=== PATIENT | male | born 1970 | race Caucasian/White ===

== ENCOUNTER 2017-02-03 12:26 | Emergency (ER) | payer OTHER ==
[~2017-02-03] VITALS: Ht 180.3 cm; Wt 100.0 kg
[2017-02-03 12:27] VITALS: BP 134/78; PULSE 92; RESP 12; TEMP 98.6; O2SAT 99
[2017-02-03] MEDS ORDERED: TRAM50TA PO (14:46)
--- NOTE | 2017-02-03 14:46 | PD ---
HPI Chief Complaint: Injury Time Seen by Provider: 12:50 Travel History International Travel<30 days: No Contact w/Intl Traveler<30days: No Traveled to known affect area: No History of Present Illness HPI The patient was seen and examined in the presence of the nurse. This patient complains of a painful area on his right lower leg. Duration 2 days. Severity is moderate. PFSH Past Medical History Hx Anticoagulant Therapy: No Bipolar Disorder: Yes Anxiety: Yes Depression: Yes Cardiovascular Problems: No High Cholesterol: Yes Chemotherapy: No Cerebrovascular Accident: No Diabetes: No Diminished Hearing: No GERD: Yes Headaches: Yes Psychiatric: Yes (PTSD) Respiratory: No Tetanus Vaccination: Unknown Influenza Vaccination: No Social History Alcohol Use: No (QUIT 9 YEARS AGO) Tobacco Use: Yes (1/2 PPD) Substance Use: No Allergies-Medications (Allergen,Severity, Reaction): Coded Allergies: cephalexin (Verified Allergy, Mild, Hives, 02/03/17) Review of Systems General / Constitutional: No: Fever HENT: No: Headaches Cardiovascular: No: Chest Pain or Discomfort Physical Exam Narrative SKIN: Focused skin assessment reveals no rash or ulcers. Skin is warm and dry. Palpation shows no induration or nodules. GASTROINTESTINAL: Abdomen soft, non-tender, nondistended. Positive bowel sounds. No hepato-splenomegaly, or palpable masses. No guarding. Right leg: Patient has a palpable cord in the medial aspect of the right lower leg which is tender and inflamed Data Data Last Documented VS Vital Signs Date Time Temp Pulse Resp B/P (MAP) Pulse Ox O2 Delivery O2 Flow Rate FiO2 02/03/17 12:55 18 99 Room Air 02/03/17 12:27 98.6 92 134/78 (96) [facility] Medical Decision Making Medical Screen Exam Complete: Yes Emergency Medical Condition: Yes Medical Record Reviewed: Yes Differential Diagnosis Superficial thrombophlebitis, DVT, cellulitis Narrative Course I have reviewed the patient's electronic medical record. Presentation is consistent with a superficial thrombophlebitis. This is not a DVT. Recommending Naprosyn and warm compresses I wrote some tramadol to use as needed for breakthrough pain The patient was advised to follow up with their physician and return if they worsen. Diagnosis Primary Impression: Superficial thrombophlebitis Qualified Codes: I80.01 - Phlebitis and thrombophlebitis of superficial vessels of right lower extremity Additional Instructions: The patient was advised to follow up with their physician and return if they worsen. The patient was warned about potential sedation for the medications they will receive on prescription. Take Naprosyn daily for one week Use warm compresses Med/Other Pt SpecificInfo: Prescription(s) given Disposition: 01 DISCHARGE HOME Condition: Stable James Hua MD Feb 03, 2017 14:46
[2017-02-06] MEDS ORDERED: DULO1CAP3 PO (08:39)
[2017-02-06] MEDS ORDERED: QUET1TAB9 PO ×2 (08:39)
[2017-02-06] MEDS ORDERED: ESZO1TAB2 PO (08:39)
[2017-02-06] MEDS ORDERED: NAPR-855 PO (08:39)
[2017-02-06] MEDS ORDERED: NORT25CA PO (08:39)
[2017-02-06] MEDS ORDERED: OMEP20TA93 PO (08:39)
[2017-02-06] MEDS ORDERED: MONT10TA4 PO (08:39)
[2017-02-06] MEDS ORDERED: ALBU1AER5 INH (08:39)
[2017-02-06] MEDS ORDERED: GABA300C5 PO (08:39)
[2017-02-06] MEDS ORDERED: BUSP10TA PO (08:39)
[2017-02-06] MEDS ORDERED: ASPI-516 CHEW (08:39)
[2017-02-06] MEDS ORDERED: ASMA220A2 INH (08:39)
[2017-02-06] MEDS ORDERED: CETI10 PO (08:39)
[2017-02-06] MEDS ORDERED: ATOR80TA45 PO (08:39)
== END 2017-02-03 16:38 | disposition home or self-care (01) ==
LOC: NEPE 12:26
DX: I80.01 Phlebitis and thrombophlebitis of superficial vessels of right lower extremity (principal); K21.9 Gastro-esophageal reflux disease without esophagitis; Z72.0 Tobacco use
CPT/HCPCS: 99283

== ENCOUNTER 2017-02-11 15:16 | Emergency (ER) | payer OTHER ==
[~2017-02-11] VITALS: Ht 180.3 cm; Wt 100.0 kg
[~2017-02-11 15:16] MED LIST: ALBU1AER5 INH; ASMA220A2 INH; ASPI-516 CHEW; ATOR80TA45 PO; BUSP10TA PO; CETI10 PO; DULO1CAP3 PO; ESZO1TAB2 PO; GABA300C5 PO; MONT10TA4 PO; NAPR-855 PO; NORT25CA PO; OMEP20TA93 PO; QUET1TAB9 PO
[2017-02-11 15:18] VITALS: BP 133/66; PULSE 103; RESP 17; TEMP 98.5; O2SAT 97
--- NOTE | 2017-02-11 15:53 | PD ---
HPI Chief Complaint: Dizziness Time Seen by Provider: 15:41 Travel History International Travel<30 days: No Contact w/Intl Traveler<30days: No Traveled to known affect area: No History of Present Illness HPI 46-year-old male presents emergency Department with complaint of right knee pain , left ankle pain and left foot pain after feeling dizzy and falling today. He says he feels dizzy a lot secondary to his current psychiatric and medical medications. Denies hitting his head or loss of consciousness. Reports chronic neck pain that is unchanged. Reports being ambulatory on the affected extremities. Denies paresthesias, loss of sensation, decreased range of motion , decreased strength to bilateral lower extremities. Reports sudden onset of right-sided chest pain that lasted [address] Said it took his breath away and he had a little bit of shortness of breath. Denies chest pain or shortness breath at this time. Denies heart palpitations, history of NM , family history of NM. Reports tobacco use. Says the chest pain was a 10/10 and it was a cutting and stabbing sensation. Has not taken any medications or tried any treatments to be a his symptoms. Symptoms are moderate in severity. Allergies to Keflex. [facility] History of PTSD with severe depression, chronic headaches, chronic neck pain. Gabapentin, nortriptyline, and aspirin. Has no other medical complaints. No other modifying factors or associated signs and symptoms. PFSH Past Medical History Hx Anticoagulant Therapy: No Bipolar Disorder: Yes Anxiety: Yes Depression: Yes Cardiovascular Problems: No High Cholesterol: Yes Chemotherapy: No Cerebrovascular Accident: No Diabetes: No Diminished Hearing: No GERD: Yes Headaches: Yes Psychiatric: Yes (PTSD) Respiratory: No Tetanus Vaccination: < 5 Years Influenza Vaccination: No Social History Alcohol Use: No (QUIT 9 YEARS AGO) Tobacco Use: Yes (1/2 PPD) Substance Use: No Allergies-Medications (Allergen,Severity, Reaction): Coded Allergies: cephalexin (Verified Allergy, Mild, Hives, 02/06/17) Reported Meds & Prescriptions Reported Meds & Active Scripts Active Reported Montelukast (Montelukast Sodium) 10 Mg Tab 10 Mg PO HS Atorvastatin (Atorvastatin Calcium) 80 Mg Tab 80 Mg PO HS Aspirin 81 Mg Chew 81 Mg CHEW DAILY Buspirone (Buspirone HCl) 10 Mg Tab 20 Mg PO TID Eszopiclone 1 Mg Tab 1 Mg PO HS PRN Naproxen 375 Mg Tab 375 Mg PO BID PRN Nortriptyline (Nortriptyline HCl) 25 Mg Cap 25 Mg PO BID Omeprazole 20 Mg Tab 20 Mg PO DAILY Asmanex 60 Act Twisthaler (Mometasone 60 Act Inh) 220 Mcg/Act Inh 1 Puff INH BID Duloxetine DR (Duloxetine HCl) 60 Mg Capdr 60 Mg PO DAILY Proair Respiclick Inh (Albuterol Sulfate) 90 Mcg/Act Aerp 2 Puff INH Q6H PRN Quetiapine (Quetiapine Fumarate) 200 Mg Tab 600 Mg PO HS Quetiapine (Quetiapine Fumarate) 200 Mg Tab 200 Mg PO AC BREAKFAST Gabapentin 300 Mg Cap 300 Mg PO TID Cetirizine (Cetirizine HCl) 10 Mg Tab 10 Mg PO DAILY Review of Systems Except as stated in HPI: all other systems reviewed are Neg Physical Exam Narrative GENERAL: Well-nourished, well-developed male patient, in no acute distress SKIN: Warm and dry. HEAD: Atraumatic. Normocephalic. EYES: Pupils equal and round. No scleral icterus. No injection or drainage. ENT: Mucosa pink and moist. Airway patent. NECK: Trachea midline. CARDIOVASCULAR: Regular rate and rhythm. No murmur appreciated. RESPIRATORY: No accessory muscle use. Sounds clear and equal bilaterally. No retractions or tachypnea. GASTROINTESTINAL: Abdomen soft, non-tender, nondistended. Bowel sounds active 4 quadrants. Nonrigid. No guarding. MUSCULOSKELETAL: Right knee without edema, erythema, ecchymosis; tenderness on palpation to the lateral aspect; with full range of motion approximately 90; joint stable with negative drawer test. Left ankle and foot with edema; ankle with tenderness on palpation to the lateral and medial malleolar zone; small area of ecchymosis noted to the dorsal aspect of the left foot just below the third, fourth, fifth toe; with tenderness to palpation. Bilateral lower extremities are supple and non-tense a 2+ pedal pulses and sensory intact. No obvious deformities. No clubbing. No cyanosis. No edema. NEUROLOGICAL: Awake and alert. Oriented 3. No obvious cranial nerve deficits. Motor grossly within normal limits. Normal speech. PSYCHIATRIC: Appropriate mood and affect; insight and judgment normal. Data Data Last Documented VS Vital Signs Date Time Temp Pulse Resp B/P (MAP) Pulse Ox O2 Delivery O2 Flow Rate FiO2 02/11/17 18:59 81 15 94 Room Air 02/11/17 18:58 111/64 (80) 02/11/17 15:18 98.5 Orders Orders Electrocardiogram (02/11/17 ) Basic Metabolic Panel (Bmp) (02/11/17 15:53) Complete Blood Count With Diff (02/11/17 15:53) Magnesium (Mg) (02/11/17 15:53) Prothrombin Time / Inr (Pt) (02/11/17 15:53) Act Partial Throm Time (Ptt) (02/11/17 15:53) Troponin I (02/11/17 15:53) Chest, Single Ap (02/11/17 15:53) Ecg Monitoring (02/11/17 15:53) Iv Access Insert/Monitor (02/11/17 15:53) Oximetry (02/11/17 15:53) Oxygen Administration (02/11/17 15:53) Sodium Chloride 0.9% Flush (Ns Flush) (02/11/17 16:00) Knee, Complete (4vws) (02/11/17 15:53) Ankle, Complete (Wap5zib) (02/11/17 15:53) Foot, Complete (Dii5nxg) (02/11/17 15:53) Ketorolac Inj (Toradol Inj) (02/11/17 16:00) Troponin I (02/11/17 19:00) Potassium Chloride (Kcl) (02/11/17 17:45) Splint Or Brace Apply/Monitor (02/11/17 17:31) Labs Laboratory Tests Test 02/11/17 16:00 02/11/17 19:00 White Blood Count 6.1 TH/MM3 Red Blood Count 3.71 MIL/MM3 Hemoglobin 11.2 GM/DL Hematocrit 33.3 % Mean Corpuscular Volume 90.0 FL Mean Corpuscular Hemoglobin 30.1 PG Mean Corpuscular Hemoglobin Concent 33.5 % Red Cell Distribution Width 15.2 % Platelet Count 200 TH/MM3 Mean Platelet Volume 9.9 FL Neutrophils (%) (Auto) 61.5 % Lymphocytes (%) (Auto) 28.7 % Monocytes (%) (Auto) 6.8 % Eosinophils (%) (Auto) 2.5 % Basophils (%) (Auto) 0.5 % Neutrophils # (Auto) 3.8 TH/MM3 Lymphocytes # (Auto) 1.8 TH/MM3 Monocytes # (Auto) 0.4 TH/MM3 Eosinophils # (Auto) 0.2 TH/MM3 Basophils # (Auto) 0.0 TH/MM3 CBC Comment DIFF FINAL Differential Comment Prothrombin Time 11.2 SEC Prothromb Time International Ratio 1.0 RATIO Activated Partial Thromboplast Time 27.4 SEC Blood Urea Nitrogen 9 MG/DL Creatinine 1.03 MG/DL Random Glucose 198 MG/DL Calcium Level 8.1 MG/DL Magnesium Level 2.0 MG/DL Sodium Level 140 MEQ/L Potassium Level 3.2 MEQ/L Chloride Level 109 MEQ/L Carbon Dioxide Level 21.5 MEQ/L Anion Gap 10 MEQ/L Estimat Glomerular Filtration Rate 78 ML/MIN Troponin I LESS THAN 0.02 NG/ML LESS THAN 0.02 NG/ML MDM Medical Decision Making Medical Screen Exam Complete: Yes Emergency Medical Condition: Yes Medical Record Reviewed: Yes Differential Diagnosis Vertigo, electrolyte imbalance, cardiac arrhythmia, NM, ACS, fracture, sprain, fall Narrative Course 46-year-old male with complaint of dizziness, right knee pain, left ankle pain, left foot pain, episode of chest pain after a fall secondary to dizziness today. I discussed patient with Dr. Guerrero, my attending physician, and he agreed with my treatment plan. IV site established. Labs ordered. X-rays ordered. EKG ordered. 1705: Left ankle x-ray, left foot x-ray, right knee x-ray, chest x-ray concludes: Knee X-Ray 02/11/171552 Signed Impressions: Service Date/Time: Saturday, February 11, 2017 16:17 - CONCLUSION: Questionable small joint effusion. No acute osseous abnormality is identified. Tyler Mcneal MD Foot X-Ray 02/11/17 5545 Signed Impressions: Service Date/Time: Saturday, February 11, 2017 16:14 - CONCLUSION: Mild dorsal soft tissue swelling. No fracture is identified. Tyler Mcneal MD Chest X-Ray 02/11/17 7132 Signed Impressions: Service Date/Time: Saturday, February 11, 2017 16:12 - CONCLUSION: No acute cardiopulmonary abnormality is identified. Tyler Mcneal MD Ankle X-Ray 02/11/17 0930 Signed Impressions: Service Date/Time: Saturday, February 11, 2017 16:15 - CONCLUSION: Diffuse subcutaneous edema with an old healed fracture of the distal fibula. No acute fracture is identified. Tyler Mcneal MD CBC unremarkable. Coags unremarkable. Potassium 3.2. Troponin less than 0.02. Magnesium 2.0. Dr. Guerrero recommended a repeat troponin after 3 hours from last troponin. Repeat troponin ordered for 1899 and pending results patient disposition will be determined at that time; if troponin within normal limits patient will be discharged home. 40 MeQ potassium chloride ordered. Juan bandage and ankle stirrup splint ordered for ankle injury. After the patient crutches for support and he says he will use his cane. 194: Repeat troponin less than 0.02. Instructed patient to follow up with orthopedics as needed. Patient has cane for support. Instructed patient to follow up with primary care provider. Patient verbalizes understanding and agreement with treatment plan. Patient is medically cleared and stable for discharge. Discussed reasons to return to the emergency department. Patient agrees with treatment plan. The patients vital signs are stable and the patient is stable for outpatient follow-up and treatment. Patient discharged home, stable and in no acute distress. Diagnosis Primary Impression: Fall Qualified Codes: W19.XXXA - Unspecified fall, initial encounter Additional Impressions: Left ankle injury Qualified Codes: S99.912A - Unspecified injury of left ankle, initial encounter Injury of left foot Qualified Codes: S99.922A - Unspecified injury of left foot, initial encounter Right knee injury Qualified Codes: S89.91XA - Unspecified injury of right lower leg, initial encounter Dizziness Chest pain Qualified Codes: R07.9 - Chest pain, unspecified Referrals: [facility] Primary Care Physician Patient Instructions: Ankle Sprain (ED), Dizziness (ED), Fall Prevention (ED), Foot Sprain (ED), General Instructions, Knee Sprain (ED) Additional Instructions: Tylenol or ibuprofen as directed and as needed for pain and inflammation Rest, ice, compress, and elevate extremity to decrease pain and inflammation Ankle Brace for support Knee brace as needed for support Crutches or cane for support Avoid aggravating activity; increase activity as tolerated Follow-up with primary care provider Return to the emergency department immediately with worsening of symptoms Med/Other Pt SpecificInfo: No Change to Meds, No Meds Exist/No RX given Disposition: 01 DISCHARGE HOME Condition: Stable Corrie Rodriguez Feb 11, 2017 15:53
[2017-02-11] MEDS ORDERED: KETOROLAC TROMETHAMINE 30 MG/ML (IVP) VIAL IV PUSH ONE (16:00)
[2017-02-11] MEDS ORDERED: SODIUM CHLORIDE 0.9% FLUSH 10 ML FLUSH IVF PRN (16:00)
[2017-02-11 16:06] VITALS: O2SAT 99
--- NOTE | 2017-02-11 16:40 | RADRPT ---
EXAM DATE/TIME: 02/11/2017 16:12 [facility] COMPARISON: No previous studies available for comparison. INDICATIONS : Fall, shortness of breath. MEDICAL HISTORY : None. SURGICAL HISTORY : None. ENCOUNTER: Initial ACUITY: 1 day PAIN SCORE: 0/10 LOCATION: Bilateral chest FINDINGS: Portable AP view of the chest demonstrates a normal-sized cardiac silhouette. No effusion, consolidat ion, or pneumothorax is visualized. The bones and soft tissues demonstrate no acute abnormality. Lung s are mildly underinflated. CONCLUSION: No acute cardiopulmonary abnormality is identified. Tyler Mcneal MD on February 11, 2017 at 16:37 Board Certified Radiologist. This report was verified electronically.
--- NOTE | 2017-02-11 16:42 | RADRPT ---
EXAM DATE/TIME: 02/11/2017 16:14 [facility] COMPARISON: No previous studies available for comparison. INDICATIONS : Fall pain in left foot bruising on anterior foot. MEDICAL HISTORY : None. SURGICAL HISTORY : None. ENCOUNTER: Initial ACUITY: 1 day PAIN SCORE: 0/10 LOCATION: Left foot FINDINGS: Three views of the right foot demonstrate no fracture or dislocation. The Lisfranc joint appears inta ct. Mineralization is within normal limits and there is no significant arthropathy. No radiopaque for eign body is identified. There is mild soft tissue swelling on the dorsal aspect of the foot. CONCLUSION: Mild dorsal soft tissue swelling. No fracture is identified. Tyler Mcneal MD on February 11, 2017 at 16:38 Board Certified Radiologist. This report was verified electronically.
--- NOTE | 2017-02-11 16:43 | RADRPT ---
EXAM DATE/TIME: 02/11/2017 16:15 [facility] COMPARISON: No previous studies available for comparison. INDICATIONS : Fall pain in left ankle, bruising in anterior ankle. MEDICAL HISTORY : None. SURGICAL HISTORY : None. ENCOUNTER: Initial ACUITY: 1 day PAIN SCORE: 0/10 LOCATION: Left ankle FINDINGS: 3 views the left ankle demonstrate no fracture or dislocation. Ankle mortise is intact. There is bony callus and change of the distal fibular metaphysis related to an old healed fracture. There is diffu se subcutaneous edema. No radiopaque foreign body is identified. CONCLUSION: Diffuse subcutaneous edema with an old healed fracture of the distal fibula. No acute fracture is joshua ntified. Tyler Mcneal MD on February 11, 2017 at 16:40 Board Certified Radiologist. This report was verified electronically.
[2017-02-11 16:44] LABS: AUTOMATED NEUTROPHIL # 3.8 TH/MM3 (1.8-7.7); BASOPHIL % 0.5 % (0.0-2.0); EOSINOPHIL # 0.2 TH/MM3 (0-0.4); EOSINOPHIL % 2.5 % (0.0-4.0); HEMATOCRIT 33.3 % (39.0-51.0); HEMO FLAGS DIFF FINAL; LYMPH % 28.7 % (9.0-44.0); LYMPHOCYTE # 1.8 TH/MM3 (1.0-4.8); MEAN CORPUSCULAR HEMOGLOBIN 30.1 PG (27.0-34.0); MEAN CORPUSCULAR HGB CONC 33.5 % (32.0-36.0); MONO % 6.8 % (0.0-8.0); NEUT % 61.5 % (16.0-70.0); PLATELET COUNT 200 TH/MM3 (150-450); RED BLOOD COUNT 3.71 MIL/MM3 (4.50-5.90); RED CELL DISTRIBUTION WIDTH 15.2 % (11.6-17.2); WHITE BLOOD COUNT 6.1 TH/MM3 (4.0-11.0)
--- NOTE | 2017-02-11 16:45 | RADRPT ---
EXAM DATE/TIME: 02/11/2017 16:17 [facility] COMPARISON: No previous studies available for comparison. INDICATIONS : Fall, pain in right knee. MEDICAL HISTORY : None. SURGICAL HISTORY : None. ENCOUNTER: Initial ACUITY: 1 day PAIN SCORE: 0/10 LOCATION: Right knee FINDINGS: Four views of the right knee demonstrate no fracture or dislocation. Possible small joint effusion. T here is no significant arthropathy and mineralization is within normal limits. No soft tissue abnorma lity or radiopaque foreign body is identified. CONCLUSION: Questionable small joint effusion. No acute osseous abnormality is identified. Tyler Mcneal MD on February 11, 2017 at 16:42 Board Certified Radiologist. This report was verified electronically.
[2017-02-11 16:49] LABS: APTT (PATIENT) 27.4 SEC (24.3-30.1); PROTHROMBIN TIME - PATIENT 11.2 SEC (9.8-11.6)
[2017-02-11 16:54] LABS: ANION GAP 10 MEQ/L (5-15); BICARBONATE 21.5 MEQ/L (21.0-32.0); BLOOD UREA NITROGEN 9 MG/DL (7-18); CHLORIDE 109 MEQ/L (98-107); GLOMERULAR FILTRATION RATE 78 ML/MIN (>89); POTASSIUM 3.2 MEQ/L (3.5-5.1); SODIUM (NA) 140 MEQ/L (136-145)
[2017-02-11] MEDS ORDERED: POTASSIUM CHLORIDE 20 MEQ CONTROLLED RELEASE TAB PO ONE (17:45)
[2017-02-11 18:58] VITALS: BP 111/64; PULSE 76; RESP 15; O2SAT 94
--- NOTE | 2017-02-12 19:08 | EKG ---
Date Performed: 02/11/2017 Time Performed: 15:41:36 PTAGE: 46 years EKG: Sinus rhythm NONSPECIFIC T-WAVE ABNORMALITY BORDERLINE ECG NO PREVIOUS TRACING DOCTOR: Chasidy Archibald Interpretating Date/Time 02/12/2017 19:06:15
== END 2017-02-11 21:16 | disposition home or self-care (01) ==
LOC: NEPC 15:16
DX: S99.912A Unspecified injury of left ankle, initial encounter (principal); S99.922A Unspecified injury of left foot, initial encounter; S89.91XA Unspecified injury of right lower leg, initial encounter; R42 Dizziness and giddiness; R07.9 Chest pain, unspecified; R94.31 Abnormal electrocardiogram [ECG] [EKG]; R06.02 Shortness of breath; Z72.0 Tobacco use
CPT/HCPCS: 71010; 73564; 73610; 73630; 80048; 83735; 84484; 85025; 85610; 85730; 93005; 96372; 99285; J1885; L1906

== ENCOUNTER 2017-05-05 11:03 | Emergency (ER) | payer OTHER ==
[2017-05-05 11:06] VITALS: BP 133/77; PULSE 97; RESP 18; TEMP 98.2; O2SAT 97
--- NOTE | 2017-05-05 11:16 | PD ---
HPI Chief Complaint: Injury Time Seen by Provider: 11:09 Travel History International Travel<30 days: No Contact w/Intl Traveler<30days: No Traveled to known affect area: No History of Present Illness HPI 46-year-old male presents to emergency department for evaluation of a tingling in his left hand from his wrist to his first second and third digits. He woke up with his hands like this. He denies any injury. He is uncertain of how he slept on it. Denies any other numbness or tingling. Denies any weakness. Denies any other symptoms at this time. PFSH Past Medical History Hx Anticoagulant Therapy: No Bipolar Disorder: Yes Anxiety: Yes Depression: Yes Cardiovascular Problems: No High Cholesterol: Yes Chemotherapy: No Cerebrovascular Accident: No Diabetes: No Diminished Hearing: No GERD: Yes Headaches: Yes Psychiatric: Yes (PTSD) Respiratory: No Social History Alcohol Use: No (QUIT 9 YEARS AGO) Tobacco Use: Yes (1/2 PPD) Substance Use: No Allergies-Medications (Allergen,Severity, Reaction): Coded Allergies: cephalexin (Verified Allergy, Mild, Hives, 05/05/17) Reported Meds & Prescriptions Reported Meds & Active Scripts Active Reported Tizanidine (Tizanidine HCl) 2 Mg Cap 1 Mg PO HS Montelukast (Montelukast Sodium) 10 Mg Tab 10 Mg PO HS Atorvastatin (Atorvastatin Calcium) 80 Mg Tab 80 Mg PO HS Aspirin 81 Mg Chew 81 Mg CHEW DAILY Buspirone (Buspirone HCl) 10 Mg Tab 20 Mg PO TID Eszopiclone 1 Mg Tab 1 Mg PO HS PRN Naproxen 375 Mg Tab 375 Mg PO BID PRN Nortriptyline (Nortriptyline HCl) 25 Mg Cap 25 Mg PO BID Omeprazole 20 Mg Tab 20 Mg PO DAILY Asmanex 60 Act Twisthaler (Mometasone 60 Act Inh) 220 Mcg/Act Inh 1 Puff INH BID Duloxetine DR (Duloxetine HCl) 60 Mg Capdr 60 Mg PO DAILY Proair Respiclick Inh (Albuterol Sulfate) 90 Mcg/Act Aerp 2 Puff INH Q6H PRN Quetiapine (Quetiapine Fumarate) 200 Mg Tab 600 Mg PO HS Quetiapine (Quetiapine Fumarate) 200 Mg Tab 200 Mg PO AC BREAKFAST Gabapentin 300 Mg Cap 300 Mg PO TID Cetirizine (Cetirizine HCl) 10 Mg Tab 10 Mg PO DAILY Review of Systems Except as stated in HPI: all other systems reviewed are Neg Physical Exam Narrative GENERAL: Well-nourished, well-developed male patient, ambulatory with cane assistance, in no acute distress. SKIN: Focused skin assessment warm/dry. HEAD: Normocephalic. EYES: No scleral icterus. No injection or drainage. NECK: Supple, trachea midline. No JVD or lymphadenopathy. CARDIOVASCULAR: Regular rate and rhythm without murmurs, gallops, or rubs. RESPIRATORY: Breath sounds equal bilaterally. No accessory muscle use. MUSCULOSKELETAL: No cyanosis, or edema. 5+ bilateral upper extremities. Patient reports altered sensation on the dorsal lateral left hand from the wrist extending to the first second and third digits. He does report that he can feel me touching but the area feels "asleep." Distal pulses are palpable. Cap refill is within normal limits. BACK: Nontender without obvious deformity. No CVA tenderness. Data Data Last Documented VS Vital Signs Date Time Temp Pulse Resp B/P (MAP) Pulse Ox O2 Delivery O2 Flow Rate FiO2 05/05/17 11:35 05/05/17 11:06 98.2 97 18 97 Orders Orders Ed Discharge Order (05/05/17 11:14) Splint Or Brace Apply/Monitor (05/05/17 11:16) MDM Medical Decision Making Medical Screen Exam Complete: Yes Emergency Medical Condition: Yes Medical Record Reviewed: Yes Differential Diagnosis Nerve palsy versus nerve injury versus carpal tunnel Narrative Course 46-year-old male presents emergency department for evaluation patient appears without distress. He has no other focal deficits or weakness just a subjective report of altered sensation to touch on the dorsal left hand extending from the wrist to the first, second, and third digits. I discussed the patient might any position. Patient is placed in a cock-up splint. He is encouraged to follow-up with a hand specialist and neurologist. He agrees to return immediately with any acute worsening symptoms. Diagnosis Primary Impression: Left radial sensory nerve injury Qualified Codes: S44.22XA - Injury of radial nerve at upper arm level, left arm, initial encounter Referrals: Hand Surgeon Patient Instructions: General Instructions, Radial Nerve Palsy (ED) Additional Instructions: Follow up with a hand specialist Seek neurology evaluation if symptoms persist Cock up wrist splint may help to improve symptoms Return to ED with acute worsening of symptoms Med/Other Pt SpecificInfo: No Change to Meds Disposition: 01 DISCHARGE HOME Condition: Stable Vera Cohen May 05, 2017 11:16
[2017-05-05] MEDS ORDERED: TIZA2CAP3 PO (11:17)
== END 2017-05-05 11:40 | disposition home or self-care (01) ==
LOC: NEPD 11:03
DX: S44.22XA Injury of radial nerve at upper arm level, left arm, initial encounter (principal); Z72.0 Tobacco use; X58.XXXA Exposure to other specified factors, initial encounter
CPT/HCPCS: 99282; L3908

== ENCOUNTER 2017-06-05 15:26 | Inpatient (IN) | payer OTHER ==
[~2017-06-05 15:26] MED LIST changes: +TIZA2CAP3 PO
[2017-06-05 15:59] VITALS: BP 129/74; PULSE 96; RESP 15; TEMP 98.2; O2SAT 97
--- NOTE | 2017-06-05 17:37 | PD ---
HPI Chief Complaint: Psychiatric Symptoms Time Seen by Provider: 17:34 Travel History International Travel<30 days: No Contact w/Intl Traveler<30days: No Traveled to known affect area: No History of Present Illness HPI 47-year-old male presents to the emergency department voluntarily for having thoughts of suicide and homicide with worsening over the past 2 days. He says his also been on and off for a while but were exacerbated about a week ago after his dog got loose and attacked another dog, almost killing it, and he had to sign his dog over. Has history of PTSD. Doesn't have a current plan of suicide. Denies suicidal attempts. Says he has thoughts of wanting to hurt anybody and everybody. He says he looks at people and thinks of any way that he can try to kill them. Reports auditory hallucinations and hears voices telling him to do bad things. Denies visual hallucinations. Denies illicit drug use. Denies alcohol use. Reports tobacco use. Symptoms aggravated her having to sign his dog over. Unknown duration. Onset unknown. Symptoms are moderate to severe in severity. [facility]. Allergies to Keflex. He is also complaining of right eye pain. On the same day he had a sinus dog over he had a trip and fall and landed on his face. He denies loss of consciousness. Reports eye pain is 10/10. Denies change in vision. Denies vomiting. Reports headache. Has history of migraine headaches and takes gabapentin and another medication of unknown name. Denies change in mentation, slurred speech, confusion, disorientation, focal deficits or weakness. Denies anticoagulant therapy. Has no other medical complaints. No other modifying factors or associated signs and symptoms. PFSH Past Medical History Hx Anticoagulant Therapy: No Bipolar Disorder: Yes Anxiety: Yes Depression: Yes Cardiovascular Problems: No High Cholesterol: Yes Chemotherapy: No Cerebrovascular Accident: No Diabetes: No Diminished Hearing: No GERD: Yes Headaches: Yes Psychiatric: Yes (PTSD) Respiratory: No Immunizations Current: Yes Migraines: Yes Schizophrenia: Yes Seizures: Yes Social History Alcohol Use: No (HX ETOH QUIT 2006) Tobacco Use: Yes (1 PPD) Substance Use: Yes ($200/NIGHT) Allergies-Medications (Allergen,Severity, Reaction): Coded Allergies: cephalexin (Verified Allergy, Mild, Hives, 06/05/17) Reported Meds & Prescriptions Reported Meds & Active Scripts Active Reported Montelukast (Montelukast Sodium) 10 Mg Tab 10 Mg PO HS Atorvastatin (Atorvastatin Calcium) 80 Mg Tab 80 Mg PO HS Aspirin 81 Mg Chew 81 Mg CHEW DAILY Buspirone (Buspirone HCl) 10 Mg Tab 20 Mg PO TID Eszopiclone 1 Mg Tab 1 Mg PO HS PRN Naproxen 375 Mg Tab 375 Mg PO BID PRN Nortriptyline (Nortriptyline HCl) 25 Mg Cap 25 Mg PO BID Omeprazole 20 Mg Tab 20 Mg PO DAILY Asmanex 60 Act Twisthaler (Mometasone 60 Act Inh) 220 Mcg/Act Inh 1 Puff INH BID Duloxetine DR (Duloxetine HCl) 60 Mg Capdr 60 Mg PO DAILY Proair Respiclick Inh (Albuterol Sulfate) 90 Mcg/Act Aerp 2 Puff INH Q6H PRN Quetiapine (Quetiapine Fumarate) 200 Mg Tab 600 Mg PO HS Quetiapine (Quetiapine Fumarate) 200 Mg Tab 200 Mg PO AC BREAKFAST Gabapentin 300 Mg Cap 300 Mg PO TID Cetirizine (Cetirizine HCl) 10 Mg Tab 10 Mg PO DAILY Review of Systems Except as stated in HPI: all other systems reviewed are Neg Physical Exam Narrative GENERAL: Well-nourished, well-developed male patient, in no acute distress SKIN: Warm and dry. HEAD: Atraumatic. Normocephalic. EYES: Pupils equal and round. Right eye with ecchymosis and orbital tenderness on palpation. ENT: Mucosa pink and moist. NECK: Supple. Trachea midline. CARDIOVASCULAR: Regular rate and rhythm. No murmur appreciated. RESPIRATORY: No accessory muscle use. Clear to auscultation. Breath sounds equal bilaterally. GASTROINTESTINAL: Abdomen soft, non-tender, nondistended. Hepatic and splenic margins not palpable. Bowel sounds are active 4 quadrants. MUSCULOSKELETAL: No obvious deformities. No clubbing. No cyanosis. No edema. NEUROLOGICAL: Awake and alert. Oriented 3. No obvious cranial nerve deficits. Motor grossly within normal limits. Normal speech. Moves all extremities. 5/5 strength to all extremities. PSYCHIATRIC: No delusional thought processes. No hallucinations. Data Data Last Documented VS Vital Signs Date Time Temp Pulse Resp B/P (MAP) Pulse Ox O2 Delivery O2 Flow Rate FiO2 06/05/17 20:30 98.0 75 18 141/87 (105) 98 Orders Orders Complete Blood Count With Diff (06/05/17 16:02) Thyroid Stimulating Hormone (06/05/17 16:02) Basic Metabolic Panel (Bmp) (06/05/17 16:02) Psych Screen (06/05/17 16:02) Drug Screen, Random Urine (06/05/17 16:02) Alcohol (Ethanol) (06/05/17 16:02) Ct Brain W/O Iv Contrast(Rout) (06/05/17 ) Ct Facial Bones W/O Iv Cont (06/05/17 ) Acetaminophen (Tylenol) (06/05/17 18:00) Diet Regular Basic (06/05/17 Dinner) Gabapentin (Neurontin) (06/06/17 09:00) Nortriptyline (Pamelor) (06/05/17 21:00) Quetiapine (Seroquel) (06/05/17 21:00) Admit Order (Ed Use Only) (06/05/17 21:54) Labs Laboratory Tests Test 06/05/17 18:30 06/05/17 19:50 White Blood Count 6.7 TH/MM3 Red Blood Count 4.21 MIL/MM3 Hemoglobin 13.3 GM/DL Hematocrit 39.0 % Mean Corpuscular Volume 92.8 FL Mean Corpuscular Hemoglobin 31.5 PG Mean Corpuscular Hemoglobin Concent 34.0 % Red Cell Distribution Width 14.8 % Platelet Count 216 TH/MM3 Mean Platelet Volume 9.2 FL Neutrophils (%) (Auto) 45.3 % Lymphocytes (%) (Auto) 44.0 % Monocytes (%) (Auto) 7.0 % Eosinophils (%) (Auto) 3.1 % Basophils (%) (Auto) 0.6 % Neutrophils # (Auto) 3.0 TH/MM3 Lymphocytes # (Auto) 2.9 TH/MM3 Monocytes # (Auto) 0.5 TH/MM3 Eosinophils # (Auto) 0.2 TH/MM3 Basophils # (Auto) 0.0 TH/MM3 CBC Comment DIFF FINAL Differential Comment Blood Urea Nitrogen 8 MG/DL Creatinine 1.17 MG/DL Random Glucose 100 MG/DL Calcium Level 8.3 MG/DL Sodium Level 142 MEQ/L Potassium Level 4.2 MEQ/L Chloride Level 105 MEQ/L Carbon Dioxide Level 30.2 MEQ/L Anion Gap 7 MEQ/L Estimat Glomerular Filtration Rate 67 ML/MIN Thyroid Stimulating Hormone 3rd Gen 1.250 uIU/ML Ethyl Alcohol Level LESS THAN 3 MG/DL Urine Opiates Screen NEG Urine Barbiturates Screen NEG Urine Amphetamines Screen NEG Urine Benzodiazepines Screen NEG Urine Cocaine Screen NEG Urine Cannabinoids Screen NEG MDM Medical Decision Making Medical Screen Exam Complete: Yes Emergency Medical Condition: Yes Medical Record Reviewed: Yes Differential Diagnosis Bipolar disorder, hallucinations, suicidal thoughts, suicidal threat, encounter for psychological evaluation, medical clearance for psychological evaluation Narrative Course Patient presents voluntarily. Physical examination and vital signs are essentially unremarkable. Patient has no medical complaints to report. Psych screen has been ordered. If the laboratory results are unremarkable, the patient will be medically cleared for psychiatric evaluation and disposition. CT head and CT facial bones ordered. Tylenol ordered. Last [address] 06/05/17 0000 Signed Impressions: Service Date/Time: Monday, June 05, 2017 18:39 - CONCLUSION: 1. Probable nondisplaced fractures of bilateral nasal bone base. 2. Prior sinonasal surgery with persistent opacification within the right maxillary sinus. The Selwyn Rivero MD Head CT 06/05/17 0000 Signed Impressions: Service Date/Time: Monday, June 05, 2017 18:39 - CONCLUSION: No acute findings in the brain. Selwyn Rivero MD Diagnosis Primary Impression: Encounter for psychological evaluation Additional Impression: Nasal bone fractures Qualified Codes: S02.2XXA - Fracture of nasal bones, initial encounter for closed fracture Condition: Stable Corrie Rodriguez [employer] Jun 05, 2017 17:37
[2017-06-05] MEDS ORDERED: ACETAMINOPHEN 325 MG TAB PO ONE (18:00)
--- NOTE | 2017-06-05 19:29 | RADRPT ---
EXAM DATE/TIME: 06/05/2017 18:39 [facility] COMPARISON: No previous studies available for comparison. INDICATIONS : Trauma; fall RADIATION DOSE: 36.32 CTDIvol (mGy) MEDICAL HISTORY : Seizures. SURGICAL HISTORY : None. ENCOUNTER: Initial ACUITY: 1 day PAIN SCALE: 5/10 LOCATION: cranial TECHNIQUE: Multiple contiguous axial images were obtained of the head. Using automated exposure control and adj ustment of the mA and/or kV according to patient size, radiation dose was kept as low as reasonably a chievable to obtain optimal diagnostic quality images. DICOM format image data is available electro nically for review and comparison. FINDINGS: CEREBRUM: The ventricles are normal for age. No evidence of midline shift, mass lesion, hemorrhage or acute in farction. No extra-axial fluid collections are seen. POSTERIOR FOSSA: The cerebellum and brainstem are intact. The 4th ventricle is midline. The cerebellopontine angle i s unremarkable. SKULL: The calvaria is intact. No evidence of skull fracture. CONCLUSION: No acute findings in the brain. Selwyn Rivero MD on June 05, 2017 at 19:27 Board Certified Radiologist. This report was verified electronically.
[2017-06-05 19:30] LABS: BASOPHIL % 0.6 % (0.0-2.0); EOSINOPHIL # 0.2 TH/MM3 (0-0.4); EOSINOPHIL % 3.1 % (0.0-4.0); HEMOGLOBIN 13.3 GM/DL (13.0-17.0); LYMPHOCYTE # 2.9 TH/MM3 (1.0-4.8); MEAN CELL VOLUME 92.8 FL (80.0-100.0); MEAN CORPUSCULAR HEMOGLOBIN 31.5 PG (27.0-34.0); MEAN PLATELET VOLUME 9.2 FL (7.0-11.0); MONOCYTE # 0.5 TH/MM3 (0-0.9); NEUT % 45.3 % (16.0-70.0); PLATELET COUNT 216 TH/MM3 (150-450); RED BLOOD COUNT 4.21 MIL/MM3 (4.50-5.90); RED CELL DISTRIBUTION WIDTH 14.8 % (11.6-17.2); WHITE BLOOD COUNT 6.7 TH/MM3 (4.0-11.0)
--- NOTE | 2017-06-05 19:32 | RADRPT ---
EXAM DATE/TIME: 06/05/2017 18:39 [facility] COMPARISON: No previous studies available for comparison. INDICATIONS : Trauma; fall RADIATION DOSE: 53.9 CTDIvol (mGy) MEDICAL HISTORY : Seizures. SURGICAL HISTORY : None. ENCOUNTER: Initial ACUITY: 1 day PAIN SCORE: 0/10 LOCATION: facial TECHNIQUE: Volumetric scanning of the facial bones was performed. Using automated exposure control and adjustme nt of the mA and/or kV according to patient size, radiation dose was kept as low as reasonably achiev able to obtain optimal diagnostic quality images. DICOM format image data is available electronicall y for review and comparison. FINDINGS: Linear discontinuity is at the base of the left and right nasal bone suggest possible fracture. Ther e is no adjacent soft tissue swelling. The zygomatic arch, lateral and inferior orbital presley, ptery goid plates, and mandible are intact. There is evidence of prior sinonasal surgery with infundibulectomy and ethmoid resection. There is m ucosal thickening occupying most of the right maxillary sinus and inferior nasal cavity. CONCLUSION: 1. Probable nondisplaced fractures of bilateral nasal bone base. 2. Prior sinonasal surgery with persistent opacification within the right maxillary sinus. The Selwyn Rivero MD on June 05, 2017 at 19:28 Board Certified Radiologist. This report was verified electronically.
--- NOTE | 2017-06-05 19:45 | PD ---
Physical Exam Date Seen by Provider: Jun 05, 2017 Time Seen by Provider: 19:43 Data Data Last Documented VS Vital Signs Date Time Temp Pulse Resp B/P (MAP) Pulse Ox O2 Delivery O2 Flow Rate FiO2 06/05/17 15:59 98.2 96 15 129/74 (92) 97 Orders Orders Complete Blood Count With Diff (06/05/17 16:02) Thyroid Stimulating Hormone (06/05/17 16:02) Basic Metabolic Panel (Bmp) (06/05/17 16:02) Psych Screen (06/05/17 16:02) Drug Screen, Random Urine (06/05/17 16:02) Alcohol (Ethanol) (06/05/17 16:02) Ct Brain W/O Iv Contrast(Rout) (06/05/17 ) Ct Facial Bones W/O Iv Cont (06/05/17 ) Acetaminophen (Tylenol) (06/05/17 18:00) Diet Regular Basic (06/05/17 Dinner) Gabapentin (Neurontin) (06/06/17 09:00) Nortriptyline (Pamelor) (06/05/17 21:00) Quetiapine (Seroquel) (06/05/17 21:00) Labs Laboratory Tests Test 06/05/17 18:30 06/05/17 19:50 White Blood Count 6.7 TH/MM3 Red Blood Count 4.21 MIL/MM3 Hemoglobin 13.3 GM/DL Hematocrit 39.0 % Mean Corpuscular Volume 92.8 FL Mean Corpuscular Hemoglobin 31.5 PG Mean Corpuscular Hemoglobin Concent 34.0 % Red Cell Distribution Width 14.8 % Platelet Count 216 TH/MM3 Mean Platelet Volume 9.2 FL Neutrophils (%) (Auto) 45.3 % Lymphocytes (%) (Auto) 44.0 % Monocytes (%) (Auto) 7.0 % Eosinophils (%) (Auto) 3.1 % Basophils (%) (Auto) 0.6 % Neutrophils # (Auto) 3.0 TH/MM3 Lymphocytes # (Auto) 2.9 TH/MM3 Monocytes # (Auto) 0.5 TH/MM3 Eosinophils # (Auto) 0.2 TH/MM3 Basophils # (Auto) 0.0 TH/MM3 CBC Comment DIFF FINAL Differential Comment Blood Urea Nitrogen 8 MG/DL Creatinine 1.17 MG/DL Random Glucose 100 MG/DL Calcium Level 8.3 MG/DL Sodium Level 142 MEQ/L Potassium Level 4.2 MEQ/L Chloride Level 105 MEQ/L Carbon Dioxide Level 30.2 MEQ/L Anion Gap 7 MEQ/L Estimat Glomerular Filtration Rate 67 ML/MIN Thyroid Stimulating Hormone 3rd Gen 1.250 uIU/ML Ethyl Alcohol Level LESS THAN 3 MG/DL Urine Opiates Screen NEG Urine Barbiturates Screen NEG Urine Amphetamines Screen NEG Urine Benzodiazepines Screen NEG Urine Cocaine Screen NEG Urine Cannabinoids Screen NEG [facility] Medical Record Reviewed: Yes Supervised Visit with JT: No Interpretation(s) Laboratory Tests Test 06/05/17 18:30 06/05/17 19:50 White Blood Count 6.7 TH/MM3 Red Blood Count 4.21 MIL/MM3 Hemoglobin 13.3 GM/DL Hematocrit 39.0 % Mean Corpuscular Volume 92.8 FL Mean Corpuscular Hemoglobin 31.5 PG Mean Corpuscular Hemoglobin Concent 34.0 % Red Cell Distribution Width 14.8 % Platelet Count 216 TH/MM3 Mean Platelet Volume 9.2 FL Neutrophils (%) (Auto) 45.3 % Lymphocytes (%) (Auto) 44.0 % Monocytes (%) (Auto) 7.0 % Eosinophils (%) (Auto) 3.1 % Basophils (%) (Auto) 0.6 % Neutrophils # (Auto) 3.0 TH/MM3 Lymphocytes # (Auto) 2.9 TH/MM3 Monocytes # (Auto) 0.5 TH/MM3 Eosinophils # (Auto) 0.2 TH/MM3 Basophils # (Auto) 0.0 TH/MM3 CBC Comment DIFF FINAL Differential Comment Blood Urea Nitrogen 8 MG/DL Creatinine 1.17 MG/DL Random Glucose 100 MG/DL Calcium Level 8.3 MG/DL Sodium Level 142 MEQ/L Potassium Level 4.2 MEQ/L Chloride Level 105 MEQ/L Carbon Dioxide Level 30.2 MEQ/L Anion Gap 7 MEQ/L Estimat Glomerular Filtration Rate 67 ML/MIN Thyroid Stimulating Hormone 3rd Gen 1.250 uIU/ML Ethyl Alcohol Level LESS THAN 3 MG/DL Urine Opiates Screen NEG Urine Barbiturates Screen NEG Urine Amphetamines Screen NEG Urine Benzodiazepines Screen NEG Urine Cocaine Screen NEG Urine Cannabinoids Screen NEG Last [address] 06/05/17 0000 Signed Impressions: Service Date/Time: Monday, June 05, 2017 18:39 - CONCLUSION: 1. Probable nondisplaced fractures of bilateral nasal bone base. 2. Prior sinonasal surgery with persistent opacification within the right maxillary sinus. The Selwyn Rivero MD Head CT 06/05/17 0000 Signed Impressions: Service Date/Time: Monday, June 05, 2017 18:39 - CONCLUSION: No acute findings in the brain. Selwyn Rivero MD Differential Diagnosis MDM: High Differential diagnoses: Schizophrenia, schizoaffective disorder, bipolar, anxiety, depression, adjustment reaction, mood disorder NOS, ODD, depressive disorder NOS, dementia, dementia with agitation, psychosis NOS, substance induced mood disorder, DMDD, Asperger syndrome, infection,electrolyte abnormality, malingering, facial fractures. Narrative Course Mental health screening discussed with the patient. Psychiatric screen ordered. The patient's CAT scan reveals chronic sinus disease and prior sinus surgeries along with an acute nasal fracture. CBC is unremarkable. Chemistries are still pending. Psych has requested that I medically clear the patient so the nurse practitioner can admit the patient. I feel that this is acceptable and they may follow the chemistry. This is medical clearance for psychiatric admission, nasal l fracture Diagnosis Primary Impression: Encounter for psychological evaluation Additional Impression: Nasal fracture Condition: Stable John Flowers Jun 05, 2017 19:45
[2017-06-05 19:47] LABS: BICARBONATE 30.2 MEQ/L (21.0-32.0); BLOOD UREA NITROGEN 8 MG/DL (7-18); CALCIUM 8.3 MG/DL (8.5-10.1); CREATININE 1.17 MG/DL (0.60-1.30); GLOMERULAR FILTRATION RATE 67 ML/MIN (>89); GLUCOSE,RANDOM 100 MG/DL (74-106)
[2017-06-05 20:07] LABS: CHLORIDE 105 MEQ/L (98-107); SODIUM (NA) 142 MEQ/L (136-145)
[2017-06-05 20:30] VITALS: BP 141/87; PULSE 75; RESP 18; TEMP 98; O2SAT 98
[2017-06-05] MEDS ORDERED: QUEtiapine FUMARATE 200 MG TAB PO SCH (21:00)
[2017-06-05] MEDS: NORTRIPTYLINE HCL 25 MG CAP PO SCH (21:00)
[2017-06-05] MEDS ORDERED: MAGNESIUM HYDROXIDE SUSP 30 ML CUP PO PRN (23:00)
[2017-06-05] MEDS: ATORVASTATIN 80 MG TAB PO SCH (23:00)
[2017-06-05] MEDS ORDERED: hydrOXYzine HCL 50 MG TAB PO PRN (23:00)
[2017-06-05] MEDS ORDERED: ALUMINUM/MAGNESIUM/SIMETH 30 ML CUP PO PRN (23:00)
[2017-06-05] MEDS ORDERED: diphenhydrAMINE HCL 50 MG CAP - HS PRN PO (23:00)
[2017-06-05] MEDS ORDERED: ACETAMINOPHEN 325 MG TAB PO PRN (23:00)
[2017-06-05] MEDS ORDERED: ALBUTEROL SULFATE 90 MCG/ACT HFA 8 GM INHALER INH PRN (23:00)
[2017-06-05] MEDS ORDERED: diphenhydrAMINE HCL 50 MG/ML VIAL - HS PRN IM (23:00)
[2017-06-05] MEDS: NAPROXEN 375 MG TAB PO PRN (23:44)
[2017-06-06 06:54] LABS: BICARBONATE 27.4 MEQ/L (21.0-32.0); BLOOD UREA NITROGEN 10 MG/DL (7-18); CALCIUM 8.6 MG/DL (8.5-10.1); CHLORIDE 105 MEQ/L (98-107); CREATININE 1.06 MG/DL (0.60-1.30); GLOMERULAR FILTRATION RATE 76 ML/MIN (>89); GLUCOSE,RANDOM 109 MG/DL (74-106); SODIUM (NA) 141 MEQ/L (136-145)
[2017-06-06 06:56] LABS: CHOLESTEROL 184 MG/DL (120-200); TRIGLYCERIDES 141 MG/DL (42-150)
[2017-06-06 06:59] LABS: CHOLESTEROL/ HDL RATIO 4.67 RATIO; HDL CHOLESTEROL 39.4 MG/DL (40.0-60.0); LDL CHOLESTEROL 116 MG/DL (0-99)
[2017-06-06] MEDS: QUEtiapine FUMARATE 200 MG TAB PO SCH ×2 (08:00→20:53)
[2017-06-06] MEDS: NORTRIPTYLINE HCL 25 MG CAP PO SCH ×2 (09:00→20:52)
[2017-06-06] MEDS ORDERED: PANTOPRAZOLE SOD 20 MG DELAYED RELEASE TAB PO SCH (09:00)
[2017-06-06] MEDS: ASMANEX 220 MCG INH SCH ×2 (09:00→20:51)
[2017-06-06] MEDS ORDERED: NICOTINE 21 MG/24 HR PATCH T-DERMAL SCH (09:00)
[2017-06-06] MEDS: CETIRIZINE HCL 10 MG TAB PO SCH (09:00)
[2017-06-06] MEDS: DULoxetine HCl DR 60 MG CAP PO SCH (09:00)
[2017-06-06] MEDS ORDERED: GABAPENTIN 300 MG CAP PO SCH (09:00)
[2017-06-06] MEDS ORDERED: ASPIRIN 81 MG CHEW TAB PO SCH (09:00)
[2017-06-06] MEDS: busPIRone HCL 10 MG TAB PO SCH ×3 (09:00→18:00)
--- NOTE | 2017-06-06 09:14 | PD.TTN ---
Patient Problems 1. Discharge planning 2. Medication compliance 3. Knowledge deficit 4. Lack of coping skills Progress Toward Goals Provider Present: Dr. Tawana Juarez Provider Input: 06/06/17 - Dr. Juarez reported that this is a new patient who arrived on a voluntary basis reproting depression with suicidal and homicidal ideations. Patient is hearing voices to kill himself and others. He resides with his daughter and they will be moving soon. Psychiatric Counselors Present: ABBY Bueno Psych Therapist Input: 06/06/17 - Counselor will visit patient today to complete biopsychosocial assessment. Group Spec/RT/OT/BARAJAS Present: JENN Barney Group Spec/RT/OT/BARAJAS Input: 06/06/17 - New patient. No groups yet. Discharge Plan 06/06/17 - [facility] Documentation Scribe: ABBY Bueno Date Resolved: Jun 06, 2017 Anny Encinas Jun 06, 2017 09:13
--- NOTE | 2017-06-06 10:22 | HHI.HP ---
Provisional Diagnosis Admission Date Jun 05, 2017 at 21:57 [place] I. 1. Adjustment disorder with other symptoms 2. History of depression and PTSD [place] II. Deferred Certification of Person's Competence To Provide Express and Informed Consent I have personally examined Taiwo Subramanian , a person being served at [facility] on, Jun 06, 2017 10:22. Express and informed consent means consent voluntarily given in writing, by a competent person, after sufficient explanation and disclosure of the subject matter involved to enable the person to make a knowing and willful decision without any element of force, fraud, deceit, duress, or other form of constraint or coercion. This person is 18 years of age or older, is not now known to be incompetent to consent to treatment with a guardian advocate, and does not have a health care surrogate or proxy currently making medical treatment decisions. I have found this person to be one of the following: [x] Competent to provide express and informed consent, as defined above, for voluntary admission to this facility and is competent to provide express and informed consent for treatment. He/she has the consistent capacity to make well reasoned, willful, and knowing decisions concerning his or her medical or mental health treatment. The person fully and consistently understands the purpose of the admission for examination/placement and is fully capable of personally exercising all rights assured under [place] Incompetent to provide express and informed consent to voluntary admission, and this is incompetent to provide express and informed consent to treatment. The person must be transferred to involuntary status and a petition for a guardian advocate filed with the Circuit Court. [] Refusing to provide express and informed consent to voluntary admission but is competent to provide express and informed consent for treatment. The person must be discharged or transferred to involuntary status. Form shall be completed within 24 hours of a person's arrival at the receiving facility and filed in the clinical record of each person: 1. Admitted on a voluntary basis 2. Permitted to provide express and informed consent to his/her own treatment 3. Allowed to transfer from involuntary to voluntary status 4. Prior to permitting a person to consent to his or her own treatment after having been previously found incompetent to consent to treatment. History of Present Illness Capacity: Has Capacity Psych Chief Complaint: Command auditory hallucinations HPI Mr. Subramanian is a 47-year-old male with a reported history of depression and PTSD who presented to the emergency department voluntarily complaining of suicidal and homicidal ideation after stressor of having to give his pet dog away. Reviewing the electronic medical record, I see no previous psychiatric contact within our system. Patient seen and examined with nurse. Chart reviewed. Case discussed with nursing staff. Patient reports that a few weeks ago his pet dogs got loose. He tried to restrain them, falling and breaking his nose in the process. For some reason, the city where he resides reportedly demanded either that these dogs be confiscated or euthanized, and so the patient reluctantly gave his dogs away, including his favorite, . In the setting of this acute stressor, patient has been "unable to cope." He reports that he always hears voices to some degree but is usually able to distract himself or drown them out. When he came into the ED, however, he felt that he could do neither. He reports that he is experiencing command auditory hallucinations to hurt himself or, if he is unable to do this, to hurt others. He denies any urge to hurt himself or others and contracts for safety on the inpatient unit. He has no specific victim in mind. Mood is depressed. No hypomanic/manic symptoms. No delusions. No negative symptoms. Remainder of the psychiatric ROS is negative. No acute physical complaints. Past psychiatric history: Patient reports ReVia's diagnoses as noted above. He follows psychiatrically at the [facility]. He reports that he was psychiatrically admitted 4 years ago in [place]. He endorses 1 previous suicide attempt by overdose. He reports that in the remote past he used to "hurt people for fun" but reportedly never accrued any legal consequences as a result. He reports good adherence to psychotropic medication regimen at home of BuSpar 20 mg 3 times daily, Cymbalta 60 mg daily, Pamelor 25 mg twice daily, Seroquel 200/600 mg and Lunesta 1 mg as needed at bedtime for sleep. Family history: The patient denies any family history of serious mental illness or suicide. Chemical dependency history: The patient reports that he used to be a heavy drinker but hasn't had any alcohol in 10 years. He does smoke cigarettes. Denies any other substance use. Social history: The patient reports that he is . He has a daughter and 2 granddaughters. He has 2 associates degrees and receives disability from the [employer]. He denies any legal history. Denies any access to guns or firearms. He served in the [employer] and had a general discharge under honorable conditions. Review of Systems Except as stated in HPI: all other systems reviewed are Neg Past Family Social History Coded Allergies: cephalexin (Verified Allergy, Mild, Hives, 06/05/17) Past Medical History Includes a history of asthma Reported Medications Montelukast (Montelukast) 10 Mg Tab, 10 MG PO HS, #30 TAB 0 Refills 02/06/17 Atorvastatin (Atorvastatin) 80 Mg Tab, 80 MG PO HS for Cholesterol Management, # 30 TAB 0 Refills 02/06/17 Aspirin (Aspirin) 81 Mg Chew, 81 MG CHEW DAILY, TAB 0 Refills 02/06/17 Buspirone (Buspirone) 10 Mg Tab, 20 MG PO TID for Anxiety, TAB 0 Refills 02/06/17 Eszopiclone (Eszopiclone) 1 Mg Tab, 1 MG PO HS Y for INSOMNIA, #30 TAB 0 Refills 02/06/17 Naproxen (Naproxen) 375 Mg Tab, 375 MG PO BID Y for PAIN SCALE 1 TO 10, #60 TAB 0 Refills 02/06/17 Nortriptyline (Nortriptyline) 25 Mg Cap, 25 MG PO BID for Depression Control, # 120 CAP 0 Refills 02/06/17 Omeprazole (Omeprazole) 20 Mg Tab, 20 MG PO DAILY, #30 TAB 0 Refills 02/06/17 Mometasone 60 Act Inh (Asmanex 60 Act Twisthaler) 220 Mcg/Act Inh, 1 PUFF INH BID for Asthma Management, #1 INHALER 0 Refills 02/06/[address] (Duloxetine DR) 60 Mg Capdr, 60 MG PO DAILY, #30 CAP 0 Refills 02/06/17 Albuterol Powder Inh (Proair Respiclick Inh) 90 Mcg/Act Aerp, 2 PUFF INH Q6H Y for SHORTNESS OF BREATH, #1 INHALER 0 Refills 02/06/17 Quetiapine (Quetiapine) 200 Mg Tab, 600 MG PO HS, #30 TAB 0 Refills 02/06/17 Quetiapine (Quetiapine) 200 Mg Tab, 200 MG PO AC BREAKFAST, #60 TAB 0 Refills 02/06/17 Gabapentin (Gabapentin) 300 Mg Cap, 300 MG PO TID, #90 CAP 0 Refills 02/06/17 Cetirizine (Cetirizine) 10 Mg Tab, 10 MG PO DAILY for Allergies, TAB 0 Refills 02/06/17 Discontinued Reported Medications Tizanidine (Tizanidine) 2 Mg Cap, 1 MG PO HS for Muscle Spasm, CAP 0 Refills 05/05/17 Current Medications Medications (Trade) Dose Ordered Sig/London Route Start Time Stop Time Status Last Admin (Neurontin) 300 mg TID PO 06/06/17 09:00 (Pamelor) 25 mg BID PO 06/05/17 21:00 06/05/17 21:00 (SEROquel) 600 mg HS PO 06/05/17 21:00 06/05/17 21:00 (Atarax) 50 mg Q6H PRN PO 06/05/17 23:00 06/05/17 23:45 (Benadryl) 50 mg HS PRN PO 06/05/17 23:00 06/05/17 23:45 (Benadryl Inj) 50 mg HS PRN IM 06/05/17 23:00 (Tylenol) 650 mg Q4H PRN PO 06/05/17 23:00 (Milk Of Magnesia Liq) 30 ml DAILY PRN PO 06/05/17 23:00 (Mag-Al Plus Susp Liq) 30 ml Q6H PRN PO 06/05/17 23:00 (Habitrol 21 Mg Patch.24 Hr) 1 patch DAILY T-DERMAL 06/06/17 09:00 Miscellaneous Information 1 HS T-DERMAL 06/06/17 21:00 (Naprosyn) 375 mg BID PRN PO 06/05/17 23:00 06/05/17 23:44 (Buspar) 20 mg TID PO 06/06/17 09:00 (Aspirin Chew) 81 mg DAILY PO 06/06/17 09:00 (Lipitor) 80 mg HS PO 06/05/17 23:00 (Proair Hfa Inh) 2 puff Q6H PRN INH 06/05/17 23:00 (Cymbalta Dr) 60 mg DAILY PO 06/06/17 09:00 Patient Own Medication PT OWN MED: ASMA... BID INH 06/06/17 09:00 (Protonix) 20 mg DAILY PO 06/06/17 09:00 (Pamelor) 25 mg HS PO 06/06/17 21:00 (ZyrTEC) 10 mg DAILY PO 06/06/17 09:00 (SEROquel) 200 mg DAILYAC PO 06/06/17 08:00 (Singulair) 10 mg HS PO 06/06/17 21:00 Patient's Strengths (min. 2) In a monitored setting. Verbally fluent. Physical Exam Physical exam completed by ED provider. On my examination today, the patient appears to be in no acute physical distress. He does have an area of ecchymosis in the superior, medial R orbit apparently as a consequence of his nasal bone fracture. No other evidence of trauma noted. No motor abnormalities noted. Labs and vitals reviewed: Vital Signs Vital Signs Date Time Temp Pulse Resp B/P (MAP) Pulse Ox O2 Delivery O2 Flow Rate FiO2 06/05/17 20:30 98.0 75 18 141/87 (105) 98 Lab Results Last Impressions Maxillofacial CT 06/05/17 0000 Signed Impressions: Service Date/Time: Monday, June 05, 2017 18:39 - CONCLUSION: 1. Probable nondisplaced fractures of bilateral nasal bone base. 2. Prior sinonasal surgery with persistent opacification within the right maxillary sinus. The Selwyn Rivero MD Head CT 06/05/17 0000 Signed Impressions: Service Date/Time: Monday, June 05, 2017 18:39 - CONCLUSION: No acute findings in the brain. Selwyn Rivero MD Item Value Date Time White Blood Count 6.7 TH/MM3 06/05/17 1830 Hemoglobin 13.3 GM/DL 06/05/17 1830 Platelet Count 216 TH/MM3 06/05/17 1830 Sodium Level 141 MEQ/L 06/06/17 0540 Potassium Level 3.6 MEQ/L 06/06/17 0540 Chloride Level 105 MEQ/L 06/06/17 0540 Carbon Dioxide Level 27.4 MEQ/L 06/06/17 0540 Anion Gap 9 MEQ/L 06/06/17 0540 Blood Urea Nitrogen 10 MG/DL 06/06/17 0540 Creatinine 1.06 MG/DL 06/06/17 0540 Estimat Glomerular Filtration Rate 76 ML/MIN L 06/06/17 0540 Thyroid Stimulating Hormone 3rd Gen 1.250 uIU/ML 06/05/17 1830 Urine Opiates Screen NEG 06/05/171949 Urine Barbiturates Screen NEG 06/05/171949 Urine Amphetamines Screen NEG 06/05/171949 Urine Benzodiazepines Screen NEG 06/05/171949 Urine Cocaine Screen NEG 06/05/171949 Urine Cannabinoids Screen NEG 06/05/171949 Ethyl Alcohol Level LESS THAN 3 MG/DL 06/05/17 1830 Mental Status Examination Appearance: Appropriate Consciousness: Alert Orientation: x4 Motor Activity: Other (no motor abnormalities noted) Speech: Unremarkable Language: Adequate Fund of Knowledge: Adequate Attention and Concentration: Adequate Memory: Unremarkable Mood: Other (dysphoric) Affect: Other (restricted) Thought Process & Associations: Intact, Logical, Linear Thought Content: Appropriate Hallucination Type: Auditory (as noted above) Delusion Type: None Suicidal Ideation: No Suicidal Plan: No Suicidal Intention: No (contracts for safety on inpatient unit) Homicidal Ideation: No Homicidal Plan: No Homicidal Intention: No (contracts for safety on inpatient unit) Insight: Fair Judgment: Impulsive Assessment & Plan Problem List: (1) Adjustment disorder with other symptoms ICD Codes: F43.29 - Adjustment disorder with other symptoms (2) History of depression ICD Codes: Z86.59 - Personal history of other mental and behavioral disorders (3) History of posttraumatic stress disorder (PTSD) ICD Codes: Z86.59 - Personal history of other mental and behavioral disorders Assessment & Plan 47-year-old male with psychiatric history as detailed above presently voluntarily admitted to the inpatient psychiatric unit. The patient reports chronic auditory hallucinations exacerbated recently by acute stressor of loss of pet dogs. These hallucinations are reportedly commanding in nature now and instruct him to hurt himself or perhaps others, although he does presently contract for safety on the inpatient unit. These hallucinations occur in isolation, and there is no other evidence of any impairment in reality construction or psychotic disorder. It is possible they represented a posttraumatic stress phenomenon or an adjustment reaction, although depression with psychotic features is possibly in the differential. Patient and I discussed his pharmacotherapeutic options for management of presenting symptoms at length and settle on the plan as outlined below. Patient requires psychiatric hospitalization at this time for safety, observation and stabilization. Admit inpatient. Voluntary status. For complaints of auditory hallucinations, titrate Seroquel to 200 mg in the morning and 800 mg at bedtime. I have discussed with the patient that this is above the recommended maximum dosing but well within the range of clinical practice. Check EKG for QTc. Continue BuSpar, Cymbalta, Pamelor, Lunesta as ordered on an outpatient basis. Ativan as needed for anxiety. R/B/A for meds discussed with patient. Continue to monitor on the high acuity unit for now given current symptoms, although if patient's symptoms justus we might consider transferring him later in the hospital course to lower acuity unit. Check LFTs. Hospitalist consult. Patient reports that he takes gabapentin 1200mg TID at home, and I have adjusted dosing of this agent accordingly. OT eval. Vitals every shift. Counselor to see. Disposition planning. Estimated length of stay: 7-9 days. Discharge Planning Pending psychiatric stabilization Request HC Surrog/Guard Advoc?: No Andrews Martin MD Jun 06, 2017 10:22
[2017-06-06] MEDS ORDERED: LORazepam 2 MG/ML VIAL IM PRN (10:30)
[2017-06-06] MEDS ORDERED: LORazepam 1 MG TAB PO PRN (10:30)
[2017-06-06] MEDS ORDERED: ESZOPICLONE 1 MG TAB PO PRN (11:30)
[2017-06-06] MEDS: GABAPENTIN 400 MG CAP PO SCH ×2 (11:44→18:00)
[2017-06-06] MEDS ORDERED: NICOTINE 21 MG/24 HR PATCH T-DERMAL PRN (11:45)
[2017-06-06 12:02] LABS: ALBUMIN 3.2 GM/DL (3.4-5.0); ALT (GPT) 14 U/L (12-78); AST (GOT) 11 U/L (15-37); DIRECT BILIRUBIN ADULT LESS THAN 0.1 MG/DL (0.0-0.2)
[2017-06-06 12:03] LABS: ALKALINE PHOSPHATASE 62 U/L (45-117); INDIRECT BILIRUBIN 0.1 MG/DL (0.0-0.8); TOTAL BILIRUBIN ADULT 0.2 MG/DL (0.2-1.0); TOTAL PROTEIN 6.3 GM/DL (6.4-8.2)
[2017-06-06 16:23] LABS: HEMOGLOBIN A1C 6.5 % (4.3-6.0)
[2017-06-06 17:18] VITALS: BP 120/64; PULSE 74; RESP 16; TEMP 98.3; O2SAT 97
--- NOTE | 2017-06-06 17:57 | PD.CONS ---
HPI Service [facility] Hospitalists Consult Requested By Psychiatric services Reason for Consult Medical management Primary Care Physician [facility] Diagnoses: History of Present Illness This is a 47-year-old male with a past medical history significant for depression, anxiety, PTSD, GERD, dyslipidemia and chronic migraines who presented voluntarily to [facility] ED with complaints of worsening suicidal and homicidal ideation over the past 2 days. Reportedly, patient's had ongoing thoughts of wanting to hurt anybody and everybody. Also reports auditory hallucinations and hearing voices that are telling him to do bad things. Patient has been admitted to the inpatient psychiatric unit and hospitalist services have been consulted for medical management. Patient seen and examined. Patient states his hallucinations have been worsening since his medication was decreased by the [facility]. 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 Patient states that he fell and hit his face on May 31. He is currently complaining of throbbing headache which he states is similar to previous migraines he's had in the past. He reports recent left foot fracture and is under the care of education administrative assistant at the [facility] and has been told he can only put pressure on the left foot if he is wearing a special orthotic insert in his shoe. He is not allowed to walk barefooted. He normally walks with the assistance of a cane at home. He denies any complaints of fever or chills. He denies any vision changes or dizziness. Denies any chest pain or shortness of breath. Denies any nausea, vomiting or abdominal pain. He denies any hematuria or dysuria. He denies any diarrhea or constipation. In the ED, maxillofacial CT revealed probable nondisplaced fractures of bilateral nasal bone base. CT of the head was unremarkable. Review of Systems Except as stated in HPI: all other systems reviewed are Neg Past Family Social History Allergies: Coded Allergies: cephalexin (Verified Allergy, Mild, Hives, 06/05/17) Past Medical History Depression Bipolar disorder Anxiety PTSD Dyslipidemia GERD Chronic migraines Past Surgical History Cervical surgery Nasal surgery Reported Medications Montelukast (Montelukast Sodium) 10 Mg Tab 10 Mg PO HS Atorvastatin (Atorvastatin Calcium) 80 Mg Tab 80 Mg PO HS Aspirin 81 Mg Chew 81 Mg CHEW DAILY Buspirone (Buspirone HCl) 10 Mg Tab 20 Mg PO TID Eszopiclone 1 Mg Tab 1 Mg PO HS PRN Naproxen 375 Mg Tab 375 Mg PO BID PRN Nortriptyline (Nortriptyline HCl) 25 Mg Cap 25 Mg PO BID Omeprazole 20 Mg Tab 20 Mg PO DAILY Asmanex 60 Act Twisthaler (Mometasone 60 Act Inh) 220 Mcg/Act Inh 1 Puff INH BID Duloxetine DR (Duloxetine HCl) 60 Mg Capdr 60 Mg PO DAILY Proair Respiclick Inh (Albuterol Sulfate) 90 Mcg/Act Aerp 2 Puff INH Q6H PRN Quetiapine (Quetiapine Fumarate) 200 Mg Tab 600 Mg PO HS Quetiapine (Quetiapine Fumarate) 200 Mg Tab 200 Mg PO AC BREAKFAST Gabapentin 300 Mg Cap 300 Mg PO TID Cetirizine (Cetirizine HCl) 10 Mg Tab 10 Mg PO DAILY Active Ordered Medications Current Medications Medications (Trade) Dose Ordered Sig/London Route Start Time Stop Time Status Last Admin (Pamelor) 25 mg BID PO 06/05/17 21:00 06/06/17 09:00 (Tylenol) 650 mg Q4H PRN PO 06/05/17 23:00 (Milk Of Magnesia Liq) 30 ml DAILY PRN PO 06/05/17 23:00 (Mag-Al Plus Susp Liq) 30 ml Q6H PRN PO 06/05/17 23:00 Miscellaneous Information 1 HS T-DERMAL 06/06/17 21:00 (Naprosyn) 375 mg BID PRN PO 06/05/17 23:00 06/05/17 23:44 (Buspar) 20 mg TID PO 06/06/17 09:00 06/06/17 13:00 (Aspirin Chew) 81 mg DAILY PO 06/06/17 09:00 06/06/17 09:00 (Lipitor) 80 mg HS PO 06/05/17 23:00 (Proair Hfa Inh) 2 puff Q6H PRN INH 06/05/17 23:00 (Cymbalta Dr) 60 mg DAILY PO 06/06/17 09:00 06/06/17 09:00 Patient Own Medication PT OWN MED: ASMA... BID INH 06/06/17 09:00 (Protonix) 20 mg DAILY PO 06/06/17 09:00 06/06/17 09:00 (ZyrTEC) 10 mg DAILY PO 06/06/17 09:00 06/06/17 09:00 (SEROquel) 200 mg DAILYAC PO 06/06/17 08:00 06/06/17 08:00 (Singulair) 10 mg HS PO 06/06/17 21:00 (Neurontin) 1,200 mg TID PO 06/06/17 13:00 06/06/17 11:44 (SEROquel) 800 mg HS PO 06/06/17 21:00 (Ativan) 1 mg Q6H PRN PO 06/06/17 10:30 (Ativan Inj) 1 mg Q6H PRN IM 06/06/17 10:30 (Lunesta) 1 mg HS PRN PO 06/06/17 11:30 (Habitrol 21 Mg Patch.24 Hr) 1 patch DAILY PRN T-DERMAL 06/06/17 11:45 Family History Mother, lung cancer Social History Patient reports history of tobacco use of a half pack per day since he was a teenager. He denies any alcohol use or illicit drug use. Physical Exam Vital Signs Vital Signs Date Time Temp Pulse Resp B/P (MAP) Pulse Ox O2 Delivery O2 Flow Rate FiO2 06/06/17 17:18 98.3 74 16 120/64 (82) 97 06/05/17 20:30 98.0 75 18 141/87 (105) 98 Physical Exam GENERAL: This is a well-nourished, well-developed male patient, in no apparent distress. Asleep but easily awakens to voice. SKIN: Cool and dry. Ecchymosis noted on the superior medial right orbit. HEAD: Normocephalic. No temporal or scalp tenderness. EYES: Pupils equal round and reactive. Extraocular motions intact. No scleral icterus. No injection or drainage. ENT: Nose without bleeding or purulent drainage. Throat without erythema, tonsillar hypertrophy or exudate. Uvula midline. Airway patent. NECK: Trachea midline. No JVD or lymphadenopathy. Supple, nontender, no meningeal signs. CARDIOVASCULAR: Regular rate and rhythm without murmurs, gallops, or rubs. RESPIRATORY: Clear to auscultation. Breath sounds equal bilaterally. No wheezes , rales, or rhonchi. GASTROINTESTINAL: Abdomen soft, non-tender, nondistended. No hepato-splenomegaly , or palpable masses. No guarding. MUSCULOSKELETAL: Extremities without clubbing or cyanosis. No joint tenderness, effusion, or edema noted. No calf tenderness. Trace BLE edema. NEUROLOGICAL: Awake and alert. Cranial nerves II through XII grossly intact. Motor and sensory grossly within normal limits. No focal neurologic findings appreciated. Normal speech. Laboratory Laboratory Tests Test 06/05/17 18:30 06/05/17 19:50 06/06/17 05:40 White Blood Count 6.7 Red Blood Count 4.21 Hemoglobin 13.3 Hematocrit 39.0 Mean Corpuscular Volume 92.8 Mean Corpuscular Hemoglobin 31.5 Mean Corpuscular Hemoglobin Concent 34.0 Red Cell Distribution Width 14.8 Platelet Count 216 Mean Platelet Volume 9.2 Neutrophils (%) (Auto) 45.3 Lymphocytes (%) (Auto) 44.0 Monocytes (%) (Auto) 7.0 Eosinophils (%) (Auto) 3.1 Basophils (%) (Auto) 0.6 Neutrophils # (Auto) 3.0 Lymphocytes # (Auto) 2.9 Monocytes # (Auto) 0.5 Eosinophils # (Auto) 0.2 Basophils # (Auto) 0.0 CBC Comment DIFF FINAL Differential Comment Blood Urea Nitrogen 8 10 Creatinine 1.17 1.06 Random Glucose 100 109 Calcium Level 8.3 8.6 Sodium Level 142 141 Potassium Level 4.2 3.6 Chloride Level 105 105 Carbon Dioxide Level 30.2 27.4 Anion Gap 7 9 Estimat Glomerular Filtration Rate 67 76 Thyroid Stimulating Hormone 3rd Gen 1.250 Ethyl Alcohol Level LESS THAN 3 Urine Opiates Screen NEG Urine Barbiturates Screen NEG Urine Amphetamines Screen NEG Urine Benzodiazepines Screen NEG Urine Cocaine Screen NEG Urine Cannabinoids Screen NEG Total Bilirubin 0.2 Direct Bilirubin LESS THAN 0.1 Indirect Bilirubin 0.1 Aspartate Amino Transf (AST/SGOT) 11 Alanine Aminotransferase (ALT/SGPT) 14 Alkaline Phosphatase 62 Total Protein 6.3 Albumin 3.2 Triglycerides Level 141 Cholesterol Level 184 LDL Cholesterol 116 HDL Cholesterol 39.4 Cholesterol/HDL Ratio 4.67 Result Diagram: 06/05/17 1830 06/06/17 0540 Imaging Last Impressions Maxillofacial CT 06/05/17 0000 Signed Impressions: Service Date/Time: Monday, June 05, 2017 18:39 - CONCLUSION: 1. Probable nondisplaced fractures of bilateral nasal bone base. 2. Prior sinonasal surgery with persistent opacification within the right maxillary sinus. The Selwyn Rivero MD Head CT 06/05/17 0000 Signed Impressions: Service Date/Time: Monday, June 05, 2017 18:39 - CONCLUSION: No acute findings in the brain. Selwyn Rivero MD Assessment and Plan Assessment and Plan 47-year-old male with a past medical history significant for depression, anxiety , PTSD, GERD, dyslipidemia and chronic migraines who presented voluntarily to [facility] ED with complaints of worsening suicidal and homicidal ideation over the past 2 days and has been admitted to the inpatient psychiatric unit. Hospitalist service is consulted for medical management. PTSD Depression Anxiety Suicidal and homicidal ideation -Management per psychiatric team -UDS negative -CT head without any acute findings Status post recent fall at home landing on face -Maxillofacial CT obtained in the ED reveals probable nondisplaced fractures of bilateral nasal bone base -Recommend patient follow-up with oral maxillary facial surgeon as outpatient /[facility]. Asthma, not in acute exacerbation Ongoing tobaccoism -Discussed cessation. Nicotine patch offered but declined. -Duoneb's prn -Continue to monitor respiratory status Chronic migraines -Continue patient's home dose of gabapentin and nortriptyline -Fioricet prn Dyslipidemia -Resume patient on atorvastatin 80 mg daily Recent left foot fracture -follows with education administrative assistant at the [facility] -Discussed with LISA Singh who will try and fashion an inpatient psychiatric approved shoe with his orthopedic insert GERD -resume home PPI DVT prophylaxis -Patient is ambulatory Patient appears stable from hospitalist standpoint. We'll sign off for now. Please reconsult if needed. Discussed Condition With patient, LISA Singh and Leydi Garcia Jun 06, 2017 17:57
[2017-06-06] MEDS ORDERED: NON-FORMULARY DRUG (Albuterol Powder Inh (Proair Respiclick Inh) 2 PUFF) INH PRN (18:00)
[2017-06-06] MEDS: NAPROXEN 375 MG TAB PO PRN (18:00)
[2017-06-06] MEDS ORDERED: ACETAMIN 325 MG/BUTALBITAL 50 MG/CAFFEINE 40 MG TAB PO PRN (18:00)
[2017-06-06] MEDS: RESP: ALBUTEROL 2.5 MG/IPRATROPIUM 0.5 MG NEB (SCH) NEB ×2 (20:00→20:39)
[2017-06-06] MEDS: ATORVASTATIN 80 MG TAB PO SCH (20:52)
[2017-06-06] MEDS: REMOVE OLD NICOTINE PATCH T-DERMAL SCH (20:52)
[2017-06-06] MEDS: MONTELUKAST SODIUM 10 MG TAB PO SCH (20:52)
[2017-06-06] MEDS ORDERED: NORTRIPTYLINE HCL 25 MG CAP PO SCH (21:00)
[2017-06-06] MEDS ORDERED: MOMETASONE INH SCH (21:00)
[2017-06-06] MEDS ORDERED: ALBUTEROL INH PRN (21:45)
[2017-06-07 06:15] VITALS: BP 131/65; PULSE 76; RESP 18; TEMP 98.8; O2SAT 97
[2017-06-07] MEDS: ASMANEX 220 MCG INH SCH ×2 (09:00→21:00)
[2017-06-07] MEDS ORDERED: MOMETASONE INH SCH (09:00)
[2017-06-07] MEDS ORDERED: NON-FORMULARY DRUG (Omeprazole 20 MG) PO SCH (09:00)
[2017-06-07] MEDS: DULoxetine HCl DR 60 MG CAP PO SCH (09:00)
[2017-06-07] MEDS: NORTRIPTYLINE HCL 25 MG CAP PO SCH ×2 (09:12→21:07)
[2017-06-07] MEDS: QUEtiapine FUMARATE 200 MG TAB PO SCH ×2 (09:12→21:07)
[2017-06-07] MEDS: busPIRone HCL 10 MG TAB PO SCH ×3 (09:13→18:26)
[2017-06-07] MEDS: ASPIRIN 81 MG CHEW TAB CHEW SCH (09:13)
[2017-06-07] MEDS: PANTOPRAZOLE SOD 20 MG DELAYED RELEASE TAB PO SCH (09:13)
[2017-06-07] MEDS: CETIRIZINE HCL 10 MG TAB PO SCH (09:13)
[2017-06-07] MEDS: GABAPENTIN 400 MG CAP PO SCH ×3 (09:13→18:26)
[2017-06-07] MEDS: RESP: ALBUTEROL 2.5 MG/IPRATROPIUM 0.5 MG NEB (SCH) NEB ×4 (10:25→21:53)
--- NOTE | 2017-06-07 11:35 | HHI.PYPN ---
Subjective Chief Complaint: Command auditory hallucinations Remarks Patient seen and examined. Chart reviewed. Case discussed with nursing staff. Case discussed with counselor. On my examination today, the patient says he feels calmer and less irritable. He does note that there was a male peer on the unit, since discharged, who was irritating him yesterday evening, but the patient self secluded in response to this irritation and did not resort to violence. Voices are "muffled" today. Patient slept better overnight. He denies side effects from medications. He has no acute physical complaints except for headache, and I note that the hospitalist has ordered the patient some Fioricet for this, which has not been utilized yet; I have discussed with nurse. Patient would like to make a medication adjustment to deal with irritability and impulsive aggression. We discussed his pharmacotherapeutic options in this regard and settle on an off label use of Depakote for this purpose as the patient notes that he has tolerated this agent well in the past. Review of Systems Except as stated in HPI: all other systems reviewed are Neg Mental Status Examination Appearance: Appropriate Consciousness: Alert Orientation: x4 Motor Activity: Other (no abnormal motor movements noted) Speech: Unremarkable Language: Adequate Fund of Knowledge: Adequate Attention and Concentration: Adequate Memory: Unremarkable Mood: Other (less dysphoric) Affect: Other (more reactive) Thought Process & Associations: Intact, Logical, Linear Thought Content: Appropriate Hallucination Type: Auditory (muffled today) Delusion Type: None Suicidal Ideation: No Suicidal Plan: No Suicidal Intention: No Homicidal Ideation: No Homicidal Plan: No Homicidal Intention: No Insight: Fair Judgment: Impulsive Results Labs Labs reviewed. Vitals/IOs Vital Signs Date Time Temp Pulse Resp B/P (MAP) Pulse Ox O2 Delivery O2 Flow Rate FiO2 06/07/17 06:15 98.8 76 18 131/65 (87) 97 Assessment & Plan Problem List: (1) Adjustment disorder with other symptoms ICD Codes: F43.29 - Adjustment disorder with other symptoms (2) History of depression ICD Codes: Z86.59 - Personal history of other mental and behavioral disorders (3) History of posttraumatic stress disorder (PTSD) ICD Codes: Z86.59 - Personal history of other mental and behavioral disorders Assessment & Plan Add low-dose Depakote. R/B/A for med change discussed with patient. LFTs and platelets okay. Continue other psychotropics as ordered. Continue to monitor on an inpatient unit. Patient is requesting private room, and I have ordered this. Hospitalist input noted and appreciated. Continue other medications and care as ordered. Justification for Cont. Inpt. Med changes. Monitoring for impairment in safety, none noted. Resolving impairment in reality construction. Risk for decompensation in less restrictive environment. Discharge Planning Pending psychiatric stabilization Request HC Surrog/Guard Advoc?: No Anrdews Martin MD Jun 07, 2017 11:35
[2017-06-07 18:19] VITALS: BP 122/68; PULSE 79; RESP 18; TEMP 97.9; O2SAT 99
[2017-06-07] MEDS: REMOVE OLD NICOTINE PATCH T-DERMAL SCH (21:00)
[2017-06-07] MEDS: ATORVASTATIN 80 MG TAB PO SCH (21:07)
[2017-06-07] MEDS: MONTELUKAST SODIUM 10 MG TAB PO SCH (21:08)
[2017-06-07] MEDS: DIVALPROEX SODIUM DELAYED RELEASE 250 MG TAB PO SCH (21:08)
--- NOTE | 2017-06-07 21:47 | EKG ---
Date Performed: 06/06/2017 Time Performed: 13:01:47 PTAGE: 47 years EKG: Sinus rhythm NORMAL ECG PREVIOUS TRACING : 02/11/2017 15.41 No significant change from previous tracing noted. DOCTOR: Roque Sow Interpretating Date/Time 06/07/2017 21:45:53
[2017-06-08 06:13] VITALS: BP 121/74; PULSE 77; RESP 17; TEMP 98.4
[2017-06-08] MEDS: RESP: ALBUTEROL 2.5 MG/IPRATROPIUM 0.5 MG NEB (SCH) NEB (08:00)
[2017-06-08] MEDS: ASMANEX 220 MCG INH SCH (09:00)
[2017-06-08] MEDS: GABAPENTIN 400 MG CAP PO SCH ×2 (10:10→13:15)
[2017-06-08] MEDS: NORTRIPTYLINE HCL 25 MG CAP PO SCH (10:10)
[2017-06-08] MEDS: busPIRone HCL 10 MG TAB PO SCH ×2 (10:11→13:15)
[2017-06-08] MEDS: PANTOPRAZOLE SOD 20 MG DELAYED RELEASE TAB PO SCH (10:11)
[2017-06-08] MEDS: DULoxetine HCl DR 60 MG CAP PO SCH (10:11)
[2017-06-08] MEDS: QUEtiapine FUMARATE 200 MG TAB PO SCH (10:11)
[2017-06-08] MEDS: DIVALPROEX SODIUM DELAYED RELEASE 250 MG TAB PO SCH (10:11)
[2017-06-08] MEDS: ASPIRIN 81 MG CHEW TAB CHEW SCH (10:12)
[2017-06-08] MEDS: CETIRIZINE HCL 10 MG TAB PO SCH (10:12)
[2017-06-08] MEDS ORDERED: NEUR400C PO (12:23)
[2017-06-08] MEDS ORDERED: DIVA250T PO (12:23)
[2017-06-08] MEDS ORDERED: QUET1TAB9 PO (12:23)
--- NOTE | 2017-06-08 12:23 | HHI.DS ---
Psychiatry Discharge Summary Inpatient Psychiatric care?: Yes Advance Directive: Yes Mental Health AdvanceDirective: No Health Care Proxy: No Admission Admission Date Jun 05, 2017 at 21:57 Admission Diagnosis: (1) Adjustment disorder with other symptoms ICD Code: F43.29 - Adjustment disorder with other symptoms (2) History of depression ICD Code: Z86.59 - Personal history of other mental and behavioral disorders (3) History of posttraumatic stress disorder (PTSD) ICD Code: Z86.59 - Personal history of other mental and behavioral disorders Brief History Mr. Subramanian is a 47-year-old male with a reported history of depression and PTSD who presented to the emergency department voluntarily complaining of suicidal and homicidal ideation after stressor of having to give his pet dog away. Reviewing the electronic medical record, I see no previous psychiatric contact within our system. Patient seen and examined with nurse. Chart reviewed. Case discussed with nursing staff. Patient reports that a few weeks ago his pet dogs got loose. He tried to restrain them, falling and breaking his nose in the process. For some reason, the city where he resides reportedly demanded either that these dogs be confiscated or euthanized, and so the patient reluctantly gave his dogs away, including his favorite, . In the setting of this acute stressor, patient has been "unable to cope." He reports that he always hears voices to some degree but is usually able to distract himself or drown them out. When he came into the ED, however, he felt that he could do neither. He reports that he is experiencing command auditory hallucinations to hurt himself or, if he is unable to do this, to hurt others. He denies any urge to hurt himself or others and contracts for safety on the inpatient unit. He has no specific victim in mind. Mood is depressed. No hypomanic/manic symptoms. No delusions. No negative symptoms. Remainder of the psychiatric ROS is negative. No acute physical complaints. Past psychiatric history: Patient reports ReVia's diagnoses as noted above. He follows psychiatrically at the [facility]. He reports that he was psychiatrically admitted 4 years ago in [place]. He endorses 1 previous suicide attempt by overdose. He reports that in the remote past he used to "hurt people for fun" but reportedly never accrued any legal consequences as a result. He reports good adherence to psychotropic medication regimen at home of BuSpar 20 mg 3 times daily, Cymbalta 60 mg daily, Pamelor 25 mg twice daily, Seroquel 200/600 mg and Lunesta 1 mg as needed at bedtime for sleep. Family history: The patient denies any family history of serious mental illness or suicide. Chemical dependency history: The patient reports that he used to be a heavy drinker but hasn't had any alcohol in 10 years. He does smoke cigarettes. Denies any other substance use. Social history: The patient reports that he is . He has a daughter and 2 granddaughters. He has 2 associates degrees and receives disability from the [employer]. He denies any legal history. Denies any access to guns or firearms. He served in the [employer] and had a general discharge under honorable conditions. Tobacco Use In Past 30 Days: 5 or More Cigarettes/Day Alcohol Use: Never Hospital Course Patient was admitted to a locked, inpatient psychiatric unit. A general medical consultation was obtained. Appropriate precautions were in place throughout patient's hospital stay. Patient was seen and examined on the unit by psychiatry and also visited by counselor. Psychotropic medications were adjusted. Patient tolerated medication changes well without side effects. Patient had improvement in presenting psychiatric symptomatology during the course of his hospital stay. There was no evidence of any suicidality or homicidality on the inpatient unit. The patient was compliant with medications. On the day of discharge: Patient seen and examined. Chart reviewed. Case discussed with nursing staff. No behavioral issues noted overnight. Case discussed in treatment team. On my examination today, the patient is requesting discharge from the inpatient psychiatric unit today. He denies any suicidal or homicidal ideation, intent or plan on direct questioning and contracts for safety. I can elicit no depressive or hypomanic/manic symptoms at this time. He reports that his auditory hallucinations are now barely perceptible "mumbling," and he denies any command auditory hallucinations at this time. No other hallucinatory material. No delusional material elicited. Irritability is considerably decreased versus admission. Patient denies side effects from medications. I have educated him regarding the need to obtain a Depakote level on an outpatient basis. No physical complaints. With the patient's permission, I have obtained collateral information from his daughter, Dixie, over the phone at [phone]. Dixie has no concerns about the patient being a risk of harm to himself or others and is comfortable having him return home at this point. She notes that she has never known the patient to be violent in the past. I have recommended that Dixie secure the home of any potential means of harm to self or others including guns, knives and medications in advance of the patient's return home out of an abundance of caution. I have educated her regarding the mechanisms for having the patient brought in for psychiatric evaluation, should the need arise, including Garza act and ex parte. Suicide and violence risk assessment on day of discharge both suggest lower imminent risk, and the patient's level of function is adequate for outpatient care. The patient does not meet criteria for involuntary psychiatric hospitalization. I have offered the patient ongoing voluntary psychiatric hospitalization, but he has declined. I have no basis to retain him over his objection at this point. Patient will be discharged home today with psychiatric follow-up as arranged by counselor. Patient is also to follow-up with primary care. I have counseled the patient regarding warning signs for need to return to the psychiatric emergency room as part of a general safety plan. The patient reports that he has an adequate supply of all medications, including the Seroquel, and so I have provided him only with a prescription for the new medication, namely the Depakote. Results Blood Pressure 121 / 74 Vital Signs Date Time Temp Pulse Resp B/P (MAP) Pulse Ox O2 Delivery O2 Flow Rate FiO2 06/08/17 06:13 98.4 77 17 121/74 (90) 06/07/17 18:19 99 Laboratory Tests Test 06/05/17 18:30 06/05/17 19:50 06/06/17 05:40 Red Blood Count 4.21 MIL/MM3 (4.50-5.90) Calcium Level 8.3 MG/DL (8.5-10.1) Estimat Glomerular Filtration Rate 67 ML/MIN (>89) 76 ML/MIN (>89) Random Glucose 109 MG/DL (74-106) Hemoglobin A1c 6.5 % (4.3-6.0) Aspartate Amino Transf (AST/SGOT) 11 U/L (15-37) Total Protein 6.3 GM/DL (6.4-8.2) Albumin 3.2 GM/DL (3.4-5.0) LDL Cholesterol 116 MG/DL (0-99) HDL Cholesterol 39.4 MG/DL (40.0-60.0) Laboratory Results Test 06/06/17 05:40 Cholesterol Level 184 MG/DL (120-200) HDL Cholesterol 39.4 MG/DL (40.0-60.0) Hemoglobin A1c 6.5 % (4.3-6.0) LDL Cholesterol 116 MG/DL (0-99) Triglycerides Level 141 MG/DL (42-150) Summary of Procedures None done Imaging Last Impressions Maxillofacial CT 06/05/17 0000 Signed Impressions: Service Date/Time: Monday, June 05, 2017 18:39 - CONCLUSION: 1. Probable nondisplaced fractures of bilateral nasal bone base. 2. Prior sinonasal surgery with persistent opacification within the right maxillary sinus. The Selwyn Rivero MD Head CT 06/05/17 0000 Signed Impressions: Service Date/Time: Monday, June 05, 2017 18:39 - CONCLUSION: No acute findings in the brain. Selwyn Rivero MD Pending results at discharge: No Medications # of Antipsychotic meds at D/C: 1 Approp Antipsych med options 1 - Minimum of three failed multiple trials of monotherapy. 2 - Documented plan to taper to monotherapy due to previous use of multiple meds OR cross-taper in progress at D/C. 3 - Documentation of augmentation of Clozapine. 4 - Justification other than those listed in allowable values 1-3, document here : Discharge Discharge Date: Jun 08, 2017 Discharge Diagnosis: (1) Adjustment disorder with other symptoms Diagnosis: Principal (resolved) ICD Code: F43.29 - Adjustment disorder with other symptoms (2) History of depression Diagnosis: Secondary (stable) ICD Code: Z86.59 - Personal history of other mental and behavioral disorders (3) History of posttraumatic stress disorder (PTSD) Diagnosis: Secondary (stable) ICD Code: Z86.59 - Personal history of other mental and behavioral disorders Pt Condition on Discharge: Stable Discharge Disposition: Discharge Home Discharge Instructions Diet Instructions: As Tolerated, No Restrictions Activities you can perform: Weight Bearing as Benigno Scheduled Appointment: as per counselor's notes New Orders: AMMONIA - 3-5 Days BASIC METABOLIC PROF - 3-5 Days DEPAKENE - 3-5 Days New Medications: Divalproex DR (Divalproex DR) 250 Mg Tabdr 250 MG PO Q12HR for Mental Health for 15 Days, TAB 1 Refill Gabapentin (Neurontin) 400 Mg Cap 1200 MG PO TID for Health, #1 CAP 0 Refills Home med. Order is to update med rec only. Pt has adequate supply. Quetiapine (Quetiapine) 200 Mg Tab 800 MG PO HS for Mental Health, #1 TAB 0 Refills Pt has supply at home. Order is to update med rec only. Continued Medications: Albuterol Powder Inh (Proair Respiclick Inh) 90 Mcg/Act Aerp 2 PUFF INH Q6H PRN for SHORTNESS OF BREATH, #1 INHALER 0 Refills Aspirin (Aspirin) 81 Mg Chew 81 MG CHEW DAILY, TAB 0 Refills Atorvastatin (Atorvastatin) 80 Mg Tab 80 MG PO HS for Cholesterol Management, #30 TAB 0 Refills Buspirone (Buspirone) 10 Mg Tab 20 MG PO TID for Anxiety, TAB 0 Refills Cetirizine (Cetirizine) 10 Mg Tab 10 MG PO DAILY for Allergies, TAB [address] (Duloxetine DR) 60 Mg Capdr 60 MG PO DAILY, #30 CAP 0 Refills Eszopiclone (Eszopiclone) 1 Mg Tab 1 MG PO HS PRN for INSOMNIA, #30 TAB 0 Refills Mometasone 60 Act Inh (Asmanex 60 Act Twisthaler) 220 Mcg/Act Inh 1 PUFF INH BID for Asthma Management, #1 INHALER 0 Refills Montelukast (Montelukast) 10 Mg Tab 10 MG PO HS, #30 TAB 0 Refills Naproxen (Naproxen) 375 Mg Tab 375 MG PO BID PRN for PAIN SCALE 1 TO 10, #60 TAB 0 Refills Nortriptyline (Nortriptyline) 25 Mg Cap 25 MG PO BID for Depression Control, #120 CAP 0 Refills Omeprazole (Omeprazole) 20 Mg Tab 20 MG PO DAILY, #30 TAB 0 Refills Quetiapine (Quetiapine) 200 Mg Tab 200 MG PO AC BREAKFAST, #60 TAB 0 Refills Discontinued Medications: Gabapentin (Gabapentin) 300 Mg Cap 300 MG PO TID, #90 CAP 0 Refills Quetiapine (Quetiapine) 200 Mg Tab 600 MG PO HS, #30 TAB 0 Refills Discharge Time > 30 minutes Mental Status Examination Appearance: Appropriate Consciousness: Alert Orientation: x4 Motor Activity: Normal gait, Other (no hand tremor, no dystonia, no dyskinesia , no other motor abnormalities noted) Speech: Unremarkable Language: Adequate Fund of Knowledge: Adequate Attention and Concentration: Adequate Memory: Unremarkable Mood: Appropriate Affect: Appropriate (full and reactive) Thought Process & Associations: Intact, Logical, Goal directed, Linear Thought Content: Appropriate Hallucination Type: Auditory ("mumbling." No CAH.) Delusion Type: None Suicidal Ideation: No Suicidal Plan: No Suicidal Intention: No Homicidal Ideation: No Homicidal Plan: No Homicidal Intention: No Insight: Adequate Judgment: Adequate Discharge/Advance Care Plan Health Problems: (1) Adjustment disorder with other symptoms (2) History of depression (3) History of posttraumatic stress disorder (PTSD) Goals to promote your health * To prevent worsening of your condition and complications * To maintain your health at the optimal level Directions to meet your goals Take your medications as prescribed Follow your dietary instruction Follow activity as directed Keep your appointments as scheduled Take your immunizations and boosters as scheduled If your symptoms worsen call your PCP, if no PCP go to Urgent Care Center or Emergency Room For 23/10 questions related to your inpatient stay or results of tests pending at discharge, please contact Dr. Andrews Martin at Smoking is Dangerous to Your Health. Avoid second hand smoking Andrews Martin MD Jun 08, 2017 12:23
--- NOTE | 2017-06-08 13:12 | PD.TTN ---
Patient Problems 1. Discharge planning 2. Medication compliance 3. Knowledge deficit 4. Lack of coping skills Progress Toward Goals Provider Present: Dr. Tawana Juarez Provider Input: 06/08/2017: Needs Med stabilization 06/06/17 - Dr. Juarez reported that this is a new patient who arrived on a voluntary basis reproting depression with suicidal and homicidal ideations. Patient is hearing voices to kill himself and others. He resides with his daughter and they will be moving soon. Nurse(s) Present: Not present Psychiatric Counselors Present: Yeny Ceballos LCSW, BURTON BuenoSari Psych Therapist Input: 06/08/2017: Home when stable 06/06/17 - Counselor will visit patient today to complete biopsychosocial assessment. Group Spec/RT/OT/BARAJAS Present: Lupe Sagastume, CATALINO, JENN Barney Group Spec/RT/OT/BARAJSA Input: 06/08/2017: Pt has been attending the group activities the last few days. Pt is social with peers and staf. Somber mood. 06/06/17 - New patient. No groups yet. Discharge Plan Patient's choice of Case Management 06/08/17: Home 06/06/17 - [facility] Documentation Scribe: ABBY Bueno Date Resolved: Jun 06, 2017 Lupe Sagastume Jun 08, 2017 13:12
== END 2017-06-08 14:15 | disposition home or self-care (01) | DRG 882 ==
LOC: NEPJ 15:26 → NEDA 21:57 → H270 22:27
PROVIDERS: ADMIT Psychiatry & Neurology Psychiatry; ATTEND Psychiatry & Neurology Psychiatry
DX: F43.29 Adjustment disorder with other symptoms (principal); R45.851 Suicidal ideations; R45.850 Homicidal ideations; F32.9 Major depressive disorder, single episode, unspecified; J45.909 Unspecified asthma, uncomplicated; S02.2XXA Fracture of nasal bones, initial encounter for closed fracture; E78.5 Hyperlipidemia, unspecified; F43.10 Post-traumatic stress disorder, unspecified; K21.9 Gastro-esophageal reflux disease without esophagitis; G43.909 Migraine, unspecified, not intractable, without status migrainosus; W19.XXXA Unspecified fall, initial encounter; W01.0XXA Fall on same level from slipping, tripping and stumbling without subsequent striking against object, initial encounter; F17.210 Nicotine dependence, cigarettes, uncomplicated
CPT/HCPCS: 70450; 70486; 80048; 80061; 80076; 80307; 83036; 84443; 85025; 93005; 94640; 94664; Q0163